=== PATIENT | male | born 1980 | race Caucasian/White ===

== ENCOUNTER 2023-03-11 16:03 | Emergency (ER) | payer MEDICAID, SELFPAY ==
[2023-03-11] VITALS (13 sets, daily range): BP systolic 126–152; BP diastolic 74–100; PULSE 20–68; RESP 16–18; TEMP 36.6–36.7; O2SAT 20–100; BMI 25.0; BMI 25.8
--- NOTE | 2023-03-11 16:09 | PC.NURSE ---
Dr. Duke at [facility] for pt eval
--- NOTE | 2023-03-11 16:11 | CT_ITS ---
PROCEDURE INFORMATION: Exam: CTA Chest With Contrast CTA Abdomen and Pelvis With Contrast Exam date and time: 03/11/2023 5:27 PM Age: 42 years old Clinical indication: Injury or trauma; Fall; Blunt trauma; Other: Entire abdomen; Additional info: Fall from 9 ft, trauma TECHNIQUE: Imaging protocol: Computed tomographic angiography of the chest with contrast. Exam focused on the arteries. Computed tomographic angiography of the abdomen and pelvis with contrast. Exam focused on the arteries. 3D rendering (Not supervised by radiologist): MIP and/or 3D reconstructed images were created by the technologist. Radiation optimization: All CT scans at this facility use at least one of these dose optimization techniques: automated exposure control; mA and/or kV adjustment per patient size (includes targeted exams where dose is matched to clinical indication); or iterative reconstruction. Contrast material: ISOVUE 370; Contrast volume: 100 ml; Contrast route: INTRAVENOUS (IV); REPORTING DATA: Count of CT and Cardiac NM exams in prior 12 months: This patient has received 0 known CTs and 0 known cardiac nuclear medicine studies in the 12 months prior to the current study. COMPARISON: CR XR PELVIS 1-2V 03/11/2023 4:16 PM FINDINGS: VASCULATURE: Pulmonary arteries: No evidence of filling defects to suggest pulmonary emboli. Aorta: Thoracic aorta is nonaneurysmal. Major aortic branches are patent. Aorta is nonaneurysmal. Celiac trunk and mesenteric arteries: No occlusion or significant stenosis. Renal arteries: No occlusion or significant stenosis. Right iliac arteries: No occlusion or significant stenosis. Left iliac arteries: No occlusion or significant stenosis. CHEST: Lungs: No evidence of airspace opacity or interlobular septal thickening. Pleural spaces: No pneumothorax. No pleural effusion. No pneumothorax. No pleural effusion. Heart: No cardiomegaly or pericardial effusion. No cardiomegaly or pericardial effusion. Heart RV/LV ratio: The RV/LV ratio is less than 1. Coronary arteries: No significant coronary artery calcifications. ABDOMEN AND PELVIS: Liver: No focal hepatic lesions. Gallbladder and bile ducts: Cholelithiasis noted without pericholecystic fluid/stranding. Pancreas: No peripancreatic fluid stranding. No main pancreatic ductal dilation. Spleen: No splenomegaly. Adrenal glands: The adrenal glands are normal. Kidneys and ureters: Nephrograms are symmetric. No nephrolithiasis or hydroureteronephrosis on either side. No solid lesions Stomach and bowel: No bowel wall thickening or distention. Appendix: No evidence of appendicitis. Intraperitoneal space: There is no evidence of free intraperitoneal or pelvic fluid. Urinary bladder: Unremarkable. No mass. Reproductive: Unremarkable as visualized. Lymph nodes: Calcified mediastinal and hilar lymph nodes suggest prior granulomatous exposure. No evidence of retroperitoneal or mesenteric lymphadenopathy. Bones/joints: Ribs are intact. Anterolisthesis of L5 over S1 attributed to a chronic bilateral pars defects. No acute osseous abnormality. Soft tissues: Fat containing right inguinal hernia noted IMPRESSION: 1. No acute traumatic injury in the chest abdomen or pelvis. 2. Anterolisthesis of L5 over S1 attributed to a chronic bilateral pars defects. No acute osseous abnormality
--- NOTE | 2023-03-11 16:11 | XR_ITS ---
PROCEDURE INFORMATION: Exam: XR Left Tibia and Fibula Exam date and time: 03/11/2023 4:16 PM Age: 42 years old Clinical indication: Injury or trauma; Fall; Blunt trauma; Lower leg; Left; Additional info: Fall from 9 ft, trauma TECHNIQUE: Imaging protocol: Radiologic exam of the left tibia and fibula. Views: 2 views. COMPARISON: No relevant prior studies available. FINDINGS: Bones/joints: Comminuted intra-articular fracture of the proximal tibia. Comminuted and impacted fracture of the proximal fibula . Soft tissues: Normal. IMPRESSION: Comminuted intra-articular fracture of the proximal tibia. Comminuted and impacted fracture of the proximal fibula .
--- NOTE | 2023-03-11 16:11 | XR_ITS ---
PROCEDURE INFORMATION: Exam: XR Left Knee Exam date and time: 03/11/2023 4:16 PM Age: 42 years old Clinical indication: Injury or trauma; Fall; Blunt trauma; Knee; Left; Additional info: Fall from 9 ft, trauma TECHNIQUE: Imaging protocol: Radiologic exam of the left knee. Views: 3 views. COMPARISON: No relevant prior studies available. FINDINGS: Bones/joints: There is a complex fracture of the knee with a comminuted tibial component with extension to the articular surface. There is a comminuted and impacted proximal fibular fracture. There is a large joint effusion. Soft tissues: Normal. IMPRESSION: Complex fracture of the proximal tibia with intra-articular extension. Complex comminuted and impacted proximal fibular fracture.
--- NOTE | 2023-03-11 16:11 | CT_ITS ---
PROCEDURE INFORMATION: Exam: CT Thoracic Spine Without Contrast Exam date and time: 03/11/2023 5:16 PM Age: 42 years old Clinical indication: Injury or trauma; Fall; Blunt trauma (contusions or hematomas); Additional info: Fall from 9 ft, trauma TECHNIQUE: Imaging protocol: Computed tomography of the thoracic spine without contrast. Radiation optimization: All CT scans at this facility use at least one of these dose optimization techniques: automated exposure control; mA and/or kV adjustment per patient size (includes targeted exams where dose is matched to clinical indication); or iterative reconstruction. REPORTING DATA: Count of CT and Cardiac NM exams in prior 12 months: This patient has received 0 known CTs and 0 known cardiac nuclear medicine studies in the 12 months prior to the current study. COMPARISON: CT CERVICAL SPINE WO CON 03/11/2023 5:14 PM FINDINGS: Bones/joints: Prominent Schmorl's noted at T12 vertebra noted.Otherwise, there is preservation of vertebral alignment and vertebral body heights. Facet joints are aligned. No acute fracture. There is no significant osseous encroachment of the spinal canal or neural foraminal narrowing at any level. Soft tissues: Unremarkable. IMPRESSION: No acute fracture. No traumatic subluxation.
--- NOTE | 2023-03-11 16:11 | CT_ITS ---
PROCEDURE INFORMATION: Exam: CT Cervical Spine Without Contrast Exam date and time: 03/11/2023 5:14 PM Age: 42 years old Clinical indication: Injury or trauma; Fall; Blunt trauma; Additional info: Fall from 9 ft, trauma TECHNIQUE: Imaging protocol: Computed tomography of the cervical spine without contrast. Radiation optimization: All CT scans at this facility use at least one of these dose optimization techniques: automated exposure control; mA and/or kV adjustment per patient size (includes targeted exams where dose is matched to clinical indication); or iterative reconstruction. REPORTING DATA: Count of CT and Cardiac NM exams in prior 12 months: This patient has received 0 known CTs and 0 known cardiac nuclear medicine studies in the 12 months prior to the current study. COMPARISON: CT HEAD/BRAIN WO CON 03/11/2023 5:11 PM FINDINGS: Bones/joints: There is straightening of the normal spinal curvature. There is multilevel degenerative change with loss of intervertebral disc space and anterior osteophyte formation. No acute fracture or dislocation is identified. Lungs: Partially visualized calcified granulomas in the lungs. Soft tissues: Unremarkable. Other findings: There is a noncalcified 6 mm left apical triangular nodule (image 85 series 3). For patients at low risk (minimal or absent history of smoking and of other known risk factors), recommend CT Chest at 3-6 months, then consider CT Chest at 18-24 months. For patients at high risk (history of smoking or of other known risk factors), recommend CT Chest at 3-6 months, then CT Chest at 18-24 months. (Reference: Yolanda). IMPRESSION: 1. Degenerative disease without acute injury identified. 2. There is a noncalcified 6 mm left apical triangular nodule (image 85 series 3). For patients at low risk (minimal or absent history of smoking and of other known risk factors), recommend CT Chest at 3-6 months, then consider CT Chest at 18-24 months. For patients at high risk (history of smoking or of other known risk factors), recommend CT Chest at 3-6 months, then CT Chest at 18-24 months. (Reference: Yolanda). REFERENCES: Yolanda Sterling et al. Guidelines for Management of Incidental Pulmonary Nodules Detected on CT Images: From the Fleischner Society 2017. Radiology. 2017;284(1):228-243.
--- NOTE | 2023-03-11 16:11 | XR_ITS ---
PROCEDURE INFORMATION: Exam: XR Left Femur Exam date and time: 03/11/2023 4:16 PM Age: 42 years old Clinical indication: Injury or trauma; Fall; Blunt trauma; Thigh or upper leg; Left; Additional info: Deformity L knee/tib fib TECHNIQUE: Imaging protocol: Radiologic exam of the left femur. Views: 2 views. COMPARISON: No relevant prior studies available. FINDINGS: Bones/joints: Partial visualization of proximal tibial and fibular fractures. No additional fracture seen. Soft tissues: Unremarkable. IMPRESSION: Partial visualization of proximal tibial and fibular fractures. No additional fracture seen.
--- NOTE | 2023-03-11 16:11 | XR_ITS ---
PROCEDURE INFORMATION: Exam: XR Chest Exam date and time: 03/11/2023 4:16 PM Age: 42 years old Clinical indication: Injury or trauma; Fall; Blunt trauma (contusions or hematomas); Additional info: Fall from 9 ft, trauma TECHNIQUE: Imaging protocol: Radiologic exam of the chest. Views: 1 view. COMPARISON: No relevant prior studies available. FINDINGS: Lungs: Unremarkable. No consolidation. Pleural spaces: Unremarkable. No pleural effusion. No pneumothorax. Heart/Mediastinum: Unremarkable. No cardiomegaly. Bones/joints: Unremarkable. IMPRESSION: No acute findings.
--- NOTE | 2023-03-11 16:11 | XR_ITS ---
PROCEDURE INFORMATION: Exam: XR Pelvis Exam date and time: 03/11/2023 4:16 PM Age: 42 years old Clinical indication: Injury or trauma; Fall; Blunt trauma (contusions or hematomas); Bilateral; Pelvic region; Additional info: Fall from 9 ft, trauma TECHNIQUE: Imaging protocol: Radiologic exam of the pelvis. Views: 1 or 2 view. COMPARISON: No relevant prior studies available. FINDINGS: Bones/joints: Unremarkable. No acute fracture. Soft tissues: Unremarkable. IMPRESSION: No acute findings.
--- NOTE | 2023-03-11 16:11 | CT_ITS ---
PROCEDURE INFORMATION: Exam: CT Lumbar Spine Without Contrast Exam date and time: 03/11/2023 5:19 PM Age: 42 years old Clinical indication: Injury or trauma; Fall; Work related; Blunt trauma (contusions or hematomas); Additional info: Fall from 9 ft, trauma TECHNIQUE: Imaging protocol: Computed tomography of the lumbar spine without contrast. Radiation optimization: All CT scans at this facility use at least one of these dose optimization techniques: automated exposure control; mA and/or kV adjustment per patient size (includes targeted exams where dose is matched to clinical indication); or iterative reconstruction. REPORTING DATA: Count of CT and Cardiac NM exams in prior 12 months: This patient has received 0 known CTs and 0 known cardiac nuclear medicine studies in the 12 months prior to the current study. COMPARISON: CT THORACIC SPINE WO CON 03/11/2023 5:16 PM FINDINGS: Bones/joints: Anterolisthesis of L5 over S1 attributed to a chronic bilateral pars defects. Prominent superior endplate Schmorl's node at T12 vertebra.There is preservation of vertebral alignment and vertebral body heights. Facet joints are aligned. No acute fracture. No significant central spinal canal stenosis or neural foraminal narrowing at any level. Sacroiliac joints are intact. Soft tissues: Unremarkable. IMPRESSION: Anterolisthesis of L5 over S1 attributed to a chronic bilateral pars defects. Otherwise no acute fracture or traumatic subluxation
--- NOTE | 2023-03-11 16:11 | CT_ITS ---
PROCEDURE INFORMATION: Exam: CT Head Without Contrast Exam date and time: 03/11/2023 5:11 PM Age: 42 years old Clinical indication: Injury or trauma; Fall; Blunt trauma (contusions or hematomas); Additional info: Fall from 9 ft, trauma TECHNIQUE: Imaging protocol: Computed tomography of the head without contrast. Radiation optimization: All CT scans at this facility use at least one of these dose optimization techniques: automated exposure control; mA and/or kV adjustment per patient size (includes targeted exams where dose is matched to clinical indication); or iterative reconstruction. REPORTING DATA: Count of CT and Cardiac NM exams in prior 12 months: This patient has received 0 known CTs and 0 known cardiac nuclear medicine studies in the 12 months prior to the current study. COMPARISON: No relevant prior studies available. FINDINGS: Brain: There are calcifications of the pineal gland. No evidence for acute intracranial hemorrhage, midline shift, or mass effect. No convincing evidence for acute transcortical infarct. Cerebral ventricles: There are calcifications of the choroid plexus. Paranasal sinuses: Visualized sinuses are unremarkable. No fluid levels. Mastoid air cells: Visualized mastoid air cells are well aerated. Bones/joints: Unremarkable. No acute fracture. Soft tissues: Unremarkable. IMPRESSION: No evidence for acute intracranial hemorrhage, midline shift, or mass effect. No convincing evidence for acute transcortical infarct.
--- NOTE | 2023-03-11 16:11 | CT_ITS ---
PROCEDURE INFORMATION: Exam: CTA Chest With Contrast Exam date and time: 03/11/2023 5:27 PM Age: 42 years old Clinical indication: Injury or trauma; Fall; Blunt trauma (contusions or hematomas); Additional info: Fall from 9 ft, trauma TECHNIQUE: Imaging protocol: Computed tomographic angiography of the chest with contrast. Exam focused on the arteries. 3D rendering (Not supervised by radiologist): MIP and/or 3D reconstructed images were created by the technologist. Radiation optimization: All CT scans at this facility use at least one of these dose optimization techniques: automated exposure control; mA and/or kV adjustment per patient size (includes targeted exams where dose is matched to clinical indication); or iterative reconstruction. Contrast material: ISOVUE 370; Contrast volume: 100 ml; Contrast route: INTRAVENOUS (IV); REPORTING DATA: Count of CT and Cardiac NM exams in prior 12 months: This patient has received 0 known CTs and 0 known cardiac nuclear medicine studies in the 12 months prior to the current study. COMPARISON: CR XR CHEST PORTABLE 03/11/2023 4:16 PM FINDINGS: Pulmonary arteries: Normal. No pulmonary emboli. Aorta: Unremarkable. No aortic aneurysm. No aortic dissection. Lungs: No evidence of airspace opacity or interlobular septal thickening. Pleural spaces: No pneumothorax. No pleural effusion. No pneumothorax. No pleural effusion. Heart: No cardiomegaly or pericardial effusion. No cardiomegaly or pericardial effusion. Heart RV/LV ratio: The RV/LV ratio is less than 1. Coronary arteries: No significant coronary artery calcifications. Lymph nodes: Calcified mediastinal and hilar lymph nodes suggest prior granulomatous exposure. Bones/joints: Unremarkable. No acute fracture. Soft tissues: Unremarkable. IMPRESSION: No acute traumatic injury in the chest.
--- NOTE | 2023-03-11 16:22 | [facility].EDGENADL ---
Discharge Plan Disposition Patient Disposition: Xfer Short-Term Hosp Condition: Good Referrals Follow up/Referrals: Provider,Referral, MD [Primary Care Provider] - See instructions Clinical Impressions Clinical Impression: Closed fracture of left tibial plateau, Closed left fibular fracture, Fall from ladder Discharge ED Provider: Allison Duke General Adult HPI General Chief complaint: Fall Stated complaint: Fall Time Seen by Provider: 03/11/23 16:06 History of Present Illness HPI narrative: This patient is a 42-year-old male who denies significant past medical history presenting to the emergency department for evaluation after a fall from 9 feet high. He was on a ladder painting a barn when he fell, landing onto his left leg. He felt immediate pain in his left lower leg and has been unable to bear weight since. He denies any head injury or loss of consciousness. He was well prior to this. He denies any head pain, neck pain, back pain, chest pain, abdominal pain, or other concerns. He was well prior to the fall. He denies any use of anticoagulation. He was well prior to the fall. Related Data Allergies Allergy/AdvReac Type Severity Reaction Status Date / Time No Known Allergies Allergy Verified 03/11/23 16:21 [facility] Disclaimer: The information contained in this section may have been updated after the patient was seen, as this information can be updated by other users. Social History Smoking Status: Current every day smoker alcohol intake: never current occupational status: employed Travel in the last 8 weeks: None ROS Obtained: Yes All systems reviewed & no additional complaints except as documented Physical Exam General General appearance: alert Comment: Uncomfortable appearing, in distress secondary to pain Head Head exam: atraumatic and normocephalic Eye Eye exam: Present normal appearance, PERRL and EOMI ENT ENT exam: Present normal exam, normal oropharynx, mucous membranes moist and normal external ear exam Neck Neck exam: Present normal inspection, full ROM and trachea midline; Absent tenderness Chest Chest inspection: Present normal inspection and symmetric chest wall rise; Absent tenderness Respiratory Respiratory exam: Present normal lung sounds bilaterally; Absent respiratory distress, wheezes, stridor or accessory muscle use Cardiovascular Cardiovascular exam: Present regular rate and normal rhythm Abdominal Exam Abdominal exam: Present soft; Absent distention, tenderness or guarding Extremities Exam Extremities exam: Present tenderness, normal capillary refill and edema Expanded Lower Extremity Exam Left: Knee exam: Present tenderness and swelling; Absent abrasion or laceration Lower leg exam: Present tenderness, swelling, deformity and other (Obvious deformity to the knee/proximal lower leg. No open wounds overlying this region. All compartments soft. Neurovascularly intact distally. No other injuries noted); Absent abrasion or laceration Back Exam Back exam: Present normal inspection and full ROM; Absent tenderness Neurological Exam Neurological exam: Present alert, oriented X3, CN II-XII intact and normal gait; Absent motor sensory deficit Psychiatric Psychiatric exam: Present normal affect and normal mood Skin Skin exam: Present warm and dry Medical Decision Making Medical Records Medical records reviewed: Yes I reviewed the patient's medical records. Ifeanyi Inquiry Pt receiving controlled substance: No Vital Signs: 03/11/23 16:26 03/11/23 16:23 03/11/23 16:30 Temperature 98.0 F Temperature Source Oral Pulse Rate 55 L 53 L Pulse Rate [Left] 60 Respiratory Rate 16 Blood Pressure 137/95 H 138/99 H Blood Pressure [Right Arm] 149/95 H Blood Pressure Mean 103 111 Blood Pressure Mean [Right Arm] 113 02 Sat by Pulse Oximetry 99 97 98 Oxygen Delivery Method Room Air Room Air
--- NOTE | 2023-03-11 16:43 | CT_ITS ---
PROCEDURE INFORMATION: Exam: CT Left Lower Extremity Without Contrast, Knee Exam date and time: 03/11/2023 5:23 PM Age: 42 years old Clinical indication: Injury or trauma; Fall; Blunt trauma; Knee; Left; Additional info: Fall, comminuted fracture TECHNIQUE: Imaging protocol: CT of the left lower extremity without contrast was performed. Exam focused on the knee. Radiation optimization: All CT scans at this facility use at least one of these dose optimization techniques: automated exposure control; mA and/or kV adjustment per patient size (includes targeted exams where dose is matched to clinical indication); or iterative reconstruction. REPORTING DATA: Count of CT and Cardiac NM exams in prior 12 months: This patient has received 0 known CTs and 0 known cardiac nuclear medicine studies in the 12 months prior to the current study. COMPARISON: CR XR KNEE LT 3V 03/11/2023 4:16 PM FINDINGS: Bones/joints: There is redemonstration of acute, highly comminuted fracture of the proximal tibial metaphysis and split fracture of mediolateral tibial plateaux. The lateral tibial plateau is depressed by 5 mm. Acute comminuted fracture of the fibular head and neck is re-identified. Large lipohemarthrosis. Soft tissues: Normal. IMPRESSION: 1. Acute Schatzker 6 tibial plateau fracture 2. Acute comminuted fracture of the fibular head and neck.
--- NOTE | 2023-03-11 17:01 | PC.NURSE ---
notified radiology to prepare a disc of images and powershare to [facility] when they are complete
[2023-03-11 17:03] LABS: Basophils # 0.1 K/mm3 (0-0.2); Basophils % 0.8 % (0.1-2.0); Eosinophils # 0.3 K/mm3 (0.0-0.4); Eosinophils % 3.4 % (0.1-12.0); Hematocrit 47.7 % (42.0-52.0); Hemoglobin 15.2 g/dL (14.1-18.0); Lymphocytes # 1.9 K/mm3 (0.7-4.5); Lymphocytes % 21.5 % (10-50); Mean Corpuscular HGB Conc 31.8 g/dL (31.8-35.4); Mean Corpuscular Hemoglobin 30.5 pg (27.0-31.2); Mean Platelet Volume 8.2 fl (7.4-10.4); Monocytes # 0.4 K/mm3 (0.1-1.0); Monocytes % 4.4 % (1.7-9.3); Neutrophils # 6.2 K/mm3 (1.8-7.8); Neutrophils % 69.9 % (37.0-80.0); Platelet Count 241 K/mm3 (142-424); Red Blood Count 4.97 M/mm3 (4.60-6.20); Red Cell Distribution Width 13.4 % (11.5-17.5); White Blood Count 8.8 K/mm3 (4.8-10.8)
[2023-03-11 17:15] LABS: INR 1.08 (0.9-1.1); Prothrombin Time 11.6 seconds (10.1-12.5)
--- NOTE | 2023-03-11 17:36 | PC.NURSE ---
pt return from CT via stretcher pt LLE repositioned for comfort, propped up on pillows. lights turned out in pt room for comfort family at [facility], call button in reach
--- NOTE | 2023-03-11 18:12 | PC.NURSE ---
Contacted [facility] for possible transfer, will call back with further.
[2023-03-11 18:20] LABS: Alanine Aminotransferase 244 U/L (12-78); Alkaline Phosphatase 112 U/L (38-126); Anion Gap 12.8 mEq/L (5-15); Aspartate Amino Transferase 155 U/L (17-59); Bilirubin,Total 0.6 mg/dl (0.2-1.3); Blood Urea Nitrogen 19 mg/dl (9-20); Calcium 8.6 mg/dl (8.4-10.2); Carbon Dioxide 30 mmol/L (22.0-30.0); Chloride 99 mmol/L (98-107); Creatinine Clearance Estimated 84 mL/min (50-200); Estimated Glomerular Filt Rate 66 ml/min (>60); GFR (African American) 80 ML/MIN (>60); Globulin 3.9 g/dL (1.3-3.2); Glucose 191 mg/dl (74-100); Potassium 3.8 mmoL/L (3.5-5.1); Sodium 138 mmol/L (136-145); Total Protein,Serum 7.9 g/dl (6.3-8.2)
--- NOTE | 2023-03-11 18:49 | PC.NURSE ---
contacted a second time for status on transfer.
--- NOTE | 2023-03-11 19:34 | PC.NURSE ---
called [facility] for transfer Dr Duke spoke with ortho and pt is accepted
== END 2023-03-11 22:21 | disposition short-term general hospital (02) ==
PROVIDERS: Emergency Provider Emergency Medicine
DX: S82.102A Unspecified fracture of upper end of left tibia, initial encounter for closed fracture (principal); S82.832A Other fracture of upper and lower end of left fibula, initial encounter for closed fracture; W11.XXXA Fall on and from ladder, initial encounter; F17.200 Nicotine dependence, unspecified, uncomplicated
CPT/HCPCS: 70450; 71045; 71275; 72125; 72128; 72131; 72170; 73552; 73562; 73590; 73700; 74174; 80053; 85025; 85610; 86850; 96361; 96374; 96375; 96376; 99285; J2405; Q9967

== ENCOUNTER 2025-03-24 12:34 | Emergency (ER) | payer MEDICAID, SELFPAY ==
[2025-03-24 12:43] VITALS: BP 120/81; PULSE 72; RESP 19; TEMP 36.6; O2SAT 95; BMI 23.5
--- OUTSIDE RECORDS SUMMARY | 2025-03-24 12:55 | XMS_ITS | Clinical Summary ---
Author Organization [facility] Address [address] [place] [id number] Care Team Providers Care Pizza Driver Name Role Phone Pcp, No Primary Care Provider [phone] Source Comments This information has been disclosed to you from confidential records protectedfrom disclosure by state law. You shall make no further disclosure of thisinformation without the specific, written, and informed release of theindividual to whom it pertains, or as otherwise permitted by law. A generalauthorization for the release of medical or other information is not sufficientfor the purposes of therelease of HIV test results or diagnoses. [id number] Allergies No known active allergies Medications naloxone (NARCAN) 4 mg/actuation [place] Apply 1 spray in one nostril if needed. Call 911. May repeat dose in other nostril if no response in 3 minutes. 2 each 1 03/17/2023 5:47 PM EDT 03/17/2023 Active acetaminophen (TYLENOL) 325 MG tablet Take 3 tablets (975 mg total) by mouth every 8 hours. 100 tablet 04/03/2023 2:28 PM EDT 04/03/2023 Active gabapentin (NEURONTIN) 300 MG capsule Take 1 capsule (300 mg total) by mouth 3 times a day. 90 capsule 04/03/2023 Active methocarbamoL (ROBAXIN) 750 MG tablet Take 1 tablet (750 mg total) by mouth 3 times a day. 30 tablet 04/03/2023 2:28 PM EDT 04/03/2023 Active sulfamethoxazol e-trimethoprim (BACTRIM DS) 800-160 mg per tabletIndicatio ns:Closed fracture of left tibial plateau with routine healing, subsequent encounter Take 1 tablet by mouth 2 times a day. 14 tablet 04/14/2023 1:59 PM EDT 04/14/2023 Active Active Problems Problem Noted Date Diagnosed Date Closed bicondylar fracture of left tibial platea u 08/07/2023 Social History Tobacco Use Types Packs/Day Years Used Date Smoking Tobacco: Every Day Cigarettes 1 9.7 Started: 2015 Tobacco Cessation:Ready to Q uit: Not Asked; Counseling Given: Not Answered Alcohol Use Standard Drinks/Week Comments Never 0 (1 standard drink = 0.6 oz pur e alcohol) AUDIT-C Answer Date Recorded Q1: How often do you have a drink containing alcohol? Never 04/02/2023 Q2: How many drinks containi ng alcohol do you have on a typical day when you are drinking? Patient does not drink Q3: How often do you have si x or more drinks on one occasion? Never 04/02/2023 Sex and Gender Information Value Date Recorded Sex Assigned at Not on file Legal Sex Male 5:51 PM EST Gender Identity Not on file Sexual Orientation Not on file Last Filed Vital Signs Vital Sign Reading Time Taken Comments Blood Pressure 113/69 04/03/2023 12:44 PM EDT Pulse 97 04/03/2023 12:44 PM EDT Temperature 37.1 C (98.7 F) 04/03/2023 12:44 PM EDT Respiratory Rate 16 04/03/2023 12:44 PM EDT Oxygen Saturation 96% 04/03/2023 12:44 PM EDT Inhaled Oxygen Concentration 96% 04/03/2023 1 2:44 PM EDT Weight 68 kg (150 lb) 08/07/2023 9:25 AM EST Height 170.2 cm (5' 7 ) 08/07/2023 9:25 AM EST Body Mass Index 23.49 08/07/2023 9:25 AM EST Plan of Treatment Health Maintenance Due Date Last Done Comments Abnormal Colonoscopy Follow Up 1979 Hepatitis C Screening (MyChart) 1979 Depression Screening 1997 HIV Screening 1997 Immunization: DTaP/Tdap/Td (1 - Tdap) 1998 Immunization: Hepatitis B (1 of 3 - 19+ 3-dose series) 1998 Immunization: Pneumococcal (1 of 2 - PCV) 1998 Alcohol Misuse Screening 03/24/2024 03/24/2023, 02/27 Cologuard (FIT-DNA) 2024 Colonoscopy 2024 Colorectal Cancer Screening (MyChart) 2024 Stool Testing (gFOBT) 2024 Immunization: COVID-19 ( - season) 2025 01/25/2021 Immunization: Influenza (MyChart) (#1) 2025 Medical Devices Implanted Type Area Vocational Nurse Device Identifier Shelf Expiration Date Model / Serial / Lot Sampson External Fixation Deshawn 3 Vectran Carbon L350 Mm Od11 Mm Modular Connect Mri Safe - [id number] Implanted:Qty : 2 on 03/12/2023 by Fer Castro MD at [facility] Main External Fixation Left: Tibia KELSI Self-A-r-TCA 4922-8-350 / / Sampson Xtrnfx 600mm 11mm Hfmn 3 C - [id number] Implanted:Qty : 1 on 03/12/2023 by Fer Castro MD at [facility] Main External Fixation Left: Tibia KELSI Self-A-r-TCA 4922-8-600 / / Coupling Xtrnfx Hfmn Iii Sampson To Sampson Fabricio 5 Mm Apx Pin - [id number] Implanted:Qty : 7 on 03/12/2023 by Fer Castro MD at [facility] Main Orthopedic Left: Tibia KELSI Self-A-r-TCA 4922-1-010 RP / / Pin Half Deshawn 3 [place] L150 Mm L50 Mm Od5 Mm Upper Right Self Drill - [id number] Implanted:Qty : 2 on 03/12/2023 by Fer Castro MD at [facility] Main Pin Left: Tibia KELSI Self-A-r-TCA 5018-6-150 / / Pin Half [place] Deshawn Ii Stainless Steel L180 Mm L50 Mm Od5 Mm Cancellous Self Tap Self Drill Thread Nonsterile External Fixation System - [id number] Implanted:Qty : 2 on 03/12/2023 by Fer Castro MD at [facility] Main Pin Left: Tibia KELSI HOWMEDICA 5018-6-180 / / Wire Fixation Stuart Stainless Steel L150 Mm Od1.6 Mm [place] Sterile - [id number] Implanted:Qty : 3 on 04/02/2023 by Fer Castro MD at [facility] Main Pin Left: Tibia BLOUNT & NEPHEW CARUSO [id number] / / Wire Fixation Stuart Stainless Steel L150 Mm Od2 Mm [place] Sterile - [id number] Implanted:Qty : 1 on 04/02/2023 by Fer Castro MD at [facility] Main Pin Left: Tibia BLOUNT & NEPHEW CARUSO [id number] / / Pin Fx 40mm 2.5mm Evos Prv Strl - [id number] Implanted:Qty : 1 on 04/02/2023 by Fer Castro MD at [facility] Main Pin Left: Tibia BLOUNT & NEPHEW CARUSO [id number] / / Plate Bone Evos L201 Mm Tibia Left Proximal Medial 16 Hole Sterile 3.5 Mm Screw - [id number] Implanted:Qty : 1 on 04/02/2023 by Fer Castro MD at [facility] Main Plate Left: Tibia BLOUNT [employer] NEPHEW CARUSO [id number] / / Screw Bone Asnis Iii Titanium L85 Mm Od6.5 Mm Fully Threaded Cannulated Self Tapping Drilling Sterile - [id number] Implanted:Qty : 1 on 03/12/2023 by Fer Castro MD at [facility] Main Screw Left: Tibia KELSI HOWMEDICA [id number] / / Screw Bone Evos L24 Mm Od3.5 Mm Cortex Self Tap Sterile - [id number] Implanted:Qty : 1 on 04/02/2023 by Fer Castro MD at [facility] Main Screw Left: Tibia [employer]OUNT [employer]PHE[employer] CARUSO [id number] / / Screw Bone Evos L22 Mm Od3.5 Mm Cortex Self Tap Sterile - [id number] Implanted:Qty : 2 on 04/02/2023 by Fer Castro MD at [facility] Main Screw Left: Tibia [employer]OUNT [employer]PHE[employer] CARUSO [id number] / / Screw Bone Evos L26 Mm Od3.5 Mm Self Tap Lock Sterile - [id number] Implanted:Qty : 1 on 04/02/2023 by Fer Castro MD at [facility] Main Screw Left: Tibia [employer]OUNT [employer]PHE[employer] CARUSO [id number] / / Screw Bone Evos L55 Mm Od3.5 Mm Self Tap Lock Sterile - [id number] Implanted:Qty : 1 on 04/02/2023 by Fer Castro MD at [facility] Main Screw Left: Tibia BLOUNT [employer]PHEW CARUSO [id number] / / Screw Bone Evos L60 Mm Od3.5 Mm Self Tap Lock Sterile - [id number] Implanted:Qty : 1 on 04/02/2023 by Fer Castro MD at [facility] Main Screw Left: Tibia BLOUNT [employer]PHEW CARUSO [id number] / / Screw Bone Evos L70 Mm Od3.5 Mm Self Tap Lock Sterile - [id number] Implanted:Qty : 1 on 04/02/2023 by Fer Castro MD at [facility] Main Screw Left: Tibia BLOUNT [employer] NEPHEW CARUSO [id number] / / Screw Bone Evos L75 Mm Od3.5 Mm Self Tap Lock Sterile - [id number] Implanted:Qty : 2 on 04/02/2023 by Fer Castro MD at [facility] Main Screw Left: Tibia BLOUNT & NEPHEW CARUSO [id number] / / Insurance [facility] MEDICAID [facility] care Address: [place] [address] Advance Directives For more information, please contact: [phone] * Full Code (Latest Code Status on File) Date Activated Date Inactivated Comments 04/02/2023 3:43 PM 04/04/2023 2:52 AM * Full Code Date Activated Date Inactivated Comments 03/12/2023 7:30 AM 03/18/2023 12:41 AM Care Teams Pizza Driver Relationship Specialty Start Date End Date Pcp, No No Address PCP - General 03/11/23
--- NOTE | 2025-03-24 12:59 | XR_ITS ---
FINAL REPORT CLINICAL HISTORY: fell from 8-10 ft landed on R foot, twisted FINDINGS: AP, oblique and lateral views of the right foot were obtained. There is hallux valgus deformity and degenerative disease of the first metatarsal phalangeal joint. There may be a nondisplaced fracture at the lateral base of the second metatarsal. Prominent soft tissue edema is noted along the dorsal midfoot and forefoot. IMPRESSION: Possible nondisplaced fracture at the base of the second metatarsal. Consider CT to further evaluate. Reviewed, Interpreted and Dictated by Karen Lanza MD Transcribed by Rhea Morgan Authenticated and [facility]
--- NOTE | 2025-03-24 12:59 | XR_ITS ---
FINAL REPORT CLINICAL HISTORY: fell from 8-10 ft FINDINGS: AP, oblique, and lateral views of the right ankle were obtained. There is no fracture or dislocation. The ankle mortise is intact. Soft tissues are unremarkable. IMPRESSION: No acute osseous abnormality of the right ankle. Reviewed, Interpreted and Dictated by Karen Lanza MD Transcribed by Rhea Morgan Authenticated and [facility]
[2025-03-24 13:00] VITALS: O2SAT 95
[2025-03-24] MEDS: ACETAMINOPHEN 500MG TAB 1000 MG PO (13:12)
--- NOTE | 2025-03-24 13:30 | ED_ITS ---
<Statement entered by Jorge L Lerner DO - 03/25/25 17:49> I was consulted by the MELODIE, and we discussed the complexity of problems being addressed. I approved the treatment and management plan for this patient's care in the emergency department, thus performing a substantive portion of the medical decision making. Jorge L Lerner DO Discharge Plan Disposition Patient Disposition: Home, Self-Care Condition: Fair Referrals Follow up/Referrals: Garland Kohli DO [Staff Physician, Orthopedics] - See instructions Provider,Referral, [Primary Care Provider, Medical] - See instructions Activity Restrictions/Add. Instructions Additional Instructions/Restrictions: Today you were evaluated in the emergency department and diagnosed with a non- displaced fracture of your second metatarsal. Please wear the walking boot as directed, please follow-up with Dr. Kohli. Please use crutches as able. Please return to the ED for worsening of condition. Manage her pain with acetaminophen or ibuprofen. Return to the ED for worsening of condition. Clinical Impressions Clinical Impression: Closed fracture of second metatarsal bone Qualifiers: Encounter type: initial encounter Instructions Patient Instructions: How to Prevent Falls Print Language Print Language: Georgian Discharge ED Provider: Jorge L Lerner General Adult HPI General Chief complaint: Fall Stated complaint: [id number]- Pain and swelling R foot Time Seen by Provider: 03/24/25 12:49 Mode of Arrival: Ambulatory Source of Information: Patient Description of Symptoms (Recalled from ER Triage Doc. by RN): pt presents to ED with c/o right foot pain. pt reports that he had a fall from scaffolding 8-10 feet. pt reports pain only in right foot. foot got caught in between boards. History of Present Illness HPI narrative: patient is a 44-year-old male with no significant PMHx who presents to the ED for right foot and ankle pain. Patient states that he fell from scaffolding, approximately 8 feet, landed on his right foot which went in between some wood, and then he fell to the side. Patient states he did not hit his head, did not lose consciousness, is not on blood thinners. Patient has been ambulatory since the event. He denies any low back pain, denies pain around the calcaneus. He denies any other injuries. Related Data Allergies Allergy/AdvReac Type Severity Reaction Status Date / Time No Known Allergies Allergy Verified 03/11/23 16:21 [facility] Disclaimer: The information contained in this section may have been updated after the patient was seen, as this information can be updated by other users. Social History (Updated 03/11/23 @ 19:35 by Allison Duke DO) Smoking Status: Current every day smoker alcohol intake: never current occupational status: employed Travel in the last 8 weeks?: None Have you lived/traveled outside US in past 30 days?: No Contact w/someone who lives/traveled outside US past 30 days?: No Exposure to someone with infectious disease in past 14 days?: No Do you have a fever (greater than 100.4 F or 38 C)?: No Have you tested positive for COVID-19?: No Exposed to someone with COVID-19 in past 14 days?: No Do you have a sore throat?: No Do you have a cough?: No Do you have any weakness?: No Do you have any diarrhea?: No Are you experiencing any unusual bleeding?: No Do you have any muscle aches/pain?: No Do you have any abdominal pain?: No Are you experiencing loss of taste or smell?: No ROS Obtained: Yes Systems reviewed as appropriate & no additional complaints except as documented Physical Exam General General appearance: alert and in no apparent distress Head Head exam: atraumatic Eye Eye exam: Present PERRL and EOMI Neck Neck exam: Present full ROM Respiratory Respiratory exam: Present normal lung sounds bilaterally Cardiovascular Cardiovascular exam: Present regular rate Abdominal Exam Abdominal exam: Present soft Extremities Exam Extremities exam: Present other (Right foot swelling, tenderness on the anterior aspect, pulses present) Back Exam Back exam: Present full ROM Neurological Exam Neurological exam: Present alert and oriented X3 Skin Skin exam: Present warm and dry Medical Decision Making Medical Records Screening: Per USPSTF and CDC recommendations, given the prevalence of disease in our region, it is our hospital?s policy to screen for HIV and viral Hepatitis for all patients aged 18 and over and those with ongoing risk factors. Ifeanyi Inquiry Pt receiving controlled substance: No Ifeanyi was queried for this patient: No Vital Signs: 03/24/25 12:43 03/24/25 13:00 03/24/25 14:46 Temperature 97.9 F 98.0 F Temperature Source Oral Pulse Rate 60 Pulse Rate [Left Radial] 72 Respiratory Rate 19 16 Blood Pressure 100/68 L Blood Pressure [Right Arm] 120/81 Blood Pressure Mean [Right Arm] 94 02 Sat by Pulse Oximetry 95 95 Oxygen Delivery Method Room Air Room Air Orders (Tests/Meds): ED MEDICATIONS Discontinued Medications Generic Name Dose Route Start Last Admin Trade Name Khoi PRN Reason Stop Dose Admin Acetaminophen 1,000 mg 03/24/25 12:59 03/24/25 13:12 Acetaminophen 500mg Tab PO 03/24/25 13:00 1,000 mg ONCE ONE Administration ORDERS Category Date Time Status Ankle XR -Right minimum 3 Views [XR ankle RT min 3V] Exams 03/24/25 12:59 Completed Stat Foot XR right minimum 3 views [XR foot RT min 3V] Stat Exams 03/24/25 12:59 Completed Medical Decision Narrative: In summary, patient is a 44-year-old male with no significant PMHx who presents to the ED for right foot and ankle pain. Patient states that he fell from scaffolding, approximately 8 feet, landed on his right foot which went in between some wood, and then he fell to the side. Patient states he did not hit his head, did not lose consciousness, is not on blood thinners. Patient has been ambulatory since the event. He denies any low back pain, denies pain around the calcaneus. He denies any other injuries. Upon physical exam, patient is alert, oriented and cooperative. No step-offs or deformities of spine, no spinal tenderness. No nystagmus. Neuroexam intact. He has swelling of his right dorsal aspect of the foot, pulses intact, no posterior ankle tenderness. Differential diagnoses include metatarsal fracture, sprain, displacement, peritoneal tendon injury, among others. Discussed with patient we will proceed with imaging. He is agreeable at this time. Patient symptomatically managed with acetaminophen Formal reads of the x-rays remarkable for a nondisplaced fracture at the base of the second metatarsal. Discussed with patient diagnosis. We discussed that we will place him in a walking boot with crutches, advised him that he will need to follow-up with Dr. Kohli. Patient verbalized understanding of instructions. We discussed how to use a walking boot and the crutches, advised him that if he cannot use crutches to at least wear the walking boot until cleared. Patient was hemodynamically stable and ambulatory from the ED without difficulty Critical Care Critical Care Time Critical Care Time: No
[2025-03-24 14:46] VITALS: BP 100/68; PULSE 60; RESP 16; TEMP 36.7; O2SAT 95
== END 2025-03-24 14:47 | disposition home or self-care (01) ==
PROVIDERS: Emergency Provider Student in an Organized Health Care Education/Training Program
DX: S92.321A Displaced fracture of second metatarsal bone, right foot, initial encounter for closed fracture (principal); M79.671 Pain in right foot; W17.89XA Other fall from one level to another, initial encounter
CPT/HCPCS: 73610; 73630; 99283; 99284

== ENCOUNTER 2025-04-21 20:58 | Observation (INO) | payer SELFPAY ==
[2025-04-21] VITALS (12 sets, daily range): BP systolic 100–142; BP diastolic 45–92; PULSE 72–131; RESP 11–18; TEMP 36.8; O2SAT 96–100; BMI 22.7
--- OUTSIDE RECORDS SUMMARY | 2025-04-21 21:11 | XMS_ITS | Clinical Summary ---
Author Organization [facility] Address [address] [place] [address] Care Team Providers Care Special Delivery Carrier Name Role Phone Pcp, No Primary Care Provider [phone] Source Comments This information has been disclosed [...] therelease of HIV test results or diagnoses. [id number] Allergies No known active allergies Medications naloxone (NARCAN) 4 mg/actuation [place] Apply 1 spray in one nostril if [...] Date Smoking Tobacco: Every Day Cigarettes 1 9.8 Started: 2015 Tobacco Cessation:Ready to Q uit: [...] (#1) 2025 Medical Devices Implanted Type Area Real Estate Sales Associate Device Identifier Shelf Expiration Date Model / Serial / Lot Sampson External Fixation Deshawn 3 Vectran Carbon L350 Mm Od11 Mm Modular Connect Mri Safe - [id number] Implanted:Qty : 2 on 03/12/2023 by Fer Castro MD at [facility] Main External Fixation Left: Tibia KELSI OpenbravoCA 4922-8-350 / / Sampson Xtrnfx 600mm 11mm Hfmn 3 C - [id number] Implanted:Qty : 1 on 03/12/2023 by Fer Castro MD at [facility] Main External Fixation Left: Tibia KELSI OpenbravoCA 4922-8-600 / / Coupling Xtrnfx Hfmn Iii Sampson To Sampson Fabricio 5 Mm Apx Pin - [id number] Implanted:Qty : 7 on 03/12/2023 by Fer Castro MD at [facility] Main Orthopedic Left: Tibia KELSI OpenbravoCA 4922-1-010 RP / / Pin Half Deshawn 3 [place] L150 Mm L50 Mm Od5 Mm Upper Right Self Drill - [id number] Implanted:Qty : 2 on 03/12/2023 by Fer Castro MD at [facility] Main Pin Left: Tibia KELSI OpenbravoCA 5018-6-150 / / Pin Half [place] Deshawn Ii Stainless Steel L180 Mm L50 Mm Od5 Mm Cancellous Self Tap Self Drill Thread Nonsterile External Fixation System - [id number] Implanted:Qty : 2 on 03/12/2023 by Fer Castro MD at [facility] Main Pin Left: Tibia KELSI HOWMEDICA 5018-6-180 / / Wire Fixation Stuart Stainless Steel L150 Mm Od1.6 Mm [place] Sterile - [id number] Implanted:Qty : 3 on 04/02/2023 by Fer Castro MD at [facility] Main Pin Left: Tibia BLOUNT & NEPHEW CARUSO [id number] / / Wire Fixation Stuart Stainless Steel L150 Mm Od2 Mm [place] Sterile - [id number] Implanted:Qty : 1 on 04/02/2023 by Fer Castro MD at [facility] Main Pin Left: Tibia BLOUNT & NEPHEW CARUSO [id number] / / Pin Fx 40mm 2.5mm Evos Prv Strl - [id number] Implanted:Qty : 1 on 04/02/2023 by Fer Castro MD at [facility] Main Pin Left: Tibia BLOUNT & NEPHEW CARUSO [id number] / / Plate Bone Evos L201 Mm Tibia Left Proximal Medial 16 Hole Sterile 3.5 Mm Screw - [id number] Implanted:Qty : 1 on 04/02/2023 by Fer Castro MD at [facility] Main Plate Left: Tibia BLOUNT & NEPHEW CARUSO [id number] / / Screw Bone Asnis Iii Titanium L85 Mm Od6.5 Mm Fully Threaded Cannulated Self Tapping Drilling Sterile - [id number] Implanted:Qty : 1 on 03/12/2023 by Fer Castro MD at [facility] Main Screw Left: Tibia KELSI HOWMEDICA [id number] / / Screw Bone Evos L24 Mm Od3.5 Mm Cortex Self Tap Sterile - [id number] Implanted:Qty : 1 on 04/02/2023 by Fer Castro MD at [facility] Main Screw Left: Tibia BLOUNT & NEPHEW CARUSO [id number] / / Screw Bone Evos L22 Mm Od3.5 Mm Cortex Self Tap Sterile - [id number] Implanted:Qty : 2 on 04/02/2023 by Fer Castro MD at [facility] Main Screw Left: Tibia BLOUNT & NEPHEW CARUSO [id number] / / Screw Bone Evos L26 Mm Od3.5 Mm Self Tap Lock Sterile - [id number] Implanted:Qty : 1 on 04/02/2023 by Fer Castro MD at [facility] Main Screw Left: Tibia BLOUNT & NEPHEW CARUSO [id number] / / Screw Bone Evos L55 Mm Od3.5 Mm Self Tap Lock Sterile - [id number] Implanted:Qty : 1 on 04/02/2023 by Fer Castro MD at [facility] Main Screw Left: Tibia BLOUNT & NEPHEW CARUSO [id number] / / Screw Bone Evos L60 Mm Od3.5 Mm Self Tap Lock Sterile - [id number] Implanted:Qty : 1 on 04/02/2023 by Fer Castro MD at [facility] Main Screw Left: Tibia BLOUNT & NEPHEW CARUSO [id number] / / Screw Bone Evos L70 Mm Od3.5 Mm Self Tap Lock Sterile - [id number] Implanted:Qty : 1 on 04/02/2023 by Fer Castro MD at [facility] Main Screw Left: Tibia BLOUNT & NEPHEW CARUSO [id number] / / Screw Bone Evos L75 Mm Od3.5 Mm Self Tap Lock Sterile - [id number] Implanted:Qty : 2 on 04/02/2023 by Fer Castro MD at [facility] Main Screw Left: Tibia BLOUNT & NEPHEW CARUSO [id number] / / Insurance [facility] MEDICAID Advance Directives For more information, please contact: [phone] * Full Code (Latest Code Status on File) Date Activated Date Inactivated Comments 04/02/2023 3:43 PM 04/04/2023 2:52 AM * Full Code Date Activated Date Inactivated Comments 03/12/2023 7:30 AM 03/18/2023 12:41 AM Care Teams Special Delivery Carrier Relationship Specialty Start Date End Date Pcp, No No Address PCP - General 03/11/23
--- NOTE | 2025-04-21 21:14 | ECG_ITS ---
APPROVED REPORT Exam: Resting ECG HR:123 bpm ECG Measurements Heart Rate 123 AXES DE 132 P 63 QRSd 89 QRS 65 QT 289 T 45 QTc 362 Conclusion Sinus tachycardia without acute ST or T wave changes concerning for ischemia Electronically signed by : Evie Mathew, 04/22/2025 00:41:09
--- NOTE | 2025-04-21 21:21 | XR_ITS ---
PROCEDURE INFORMATION: Exam: XR Chest Exam date and time: 04/21/2025 10:15 PM Age: 44 years old Clinical indication: Shortness of breath; Additional info: Short of breath TECHNIQUE: Imaging protocol: Radiologic exam of the chest. Views: 1 view. COMPARISON: CT ANGIO CHEST PE PROTOCOL 04/21/2025 10:14 PM FINDINGS: Lungs: There are a few scattered calcified granulomas. No consolidation. No mass. Pleural spaces: Unremarkable. No pleural effusion. No pneumothorax. Heart/Mediastinum: Unremarkable. No cardiomegaly. Vasculature: Unremarkable. Bones/joints: Unremarkable. IMPRESSION: No acute findings.
--- NOTE | 2025-04-21 21:24 | CT_ITS ---
PROCEDURE INFORMATION: Exam: CTA Chest Without And With Contrast Exam date and time: 04/21/2025 10:14 PM Age: 44 years old Clinical indication: Tachypnea; Additional info: Tachy TECHNIQUE: Imaging protocol: Computed tomographic angiography of the chest without and with contrast. Exam focused on the arteries. 3D rendering (Not supervised by radiologist): MIP and/or 3D reconstructed images were created by the technologist. Radiation optimization: All CT scans at this facility use at least one of these dose optimization techniques: automated exposure control; mA and/or kV adjustment per patient size (includes targeted exams where dose is matched to clinical indication); or iterative reconstruction. Contrast material: ISOVUE; Contrast volume: 75 ml; Contrast route: INTRAVENOUS (IV); COMPARISON: CT ANGIO CHEST 03/11/2023 5:27 PM FINDINGS: Pulmonary arteries: There are a few subsegmental pulmonary artery filling defects within both lower lobes consistent with pulmonary emboli. Aorta: Unremarkable. No aortic aneurysm. No aortic dissection. Lungs: There is a stable 8 mm noncalcified right lower lobe nodule series 7, image 97. Pleural spaces: Unremarkable. No pneumothorax. No pleural effusion. Heart: The heart RV/LV ratio is 0.9. Lymph nodes: Calcified mediastinal and bilateral hilar lymph nodes are noted. Gallbladder and biliary ducts: Cholelithiasis is noted. Bones/joints: Unremarkable. No acute fracture. Soft tissues: Unremarkable. Other findings: Scattered calcified granulomata are noted. IMPRESSION: 1. Subsegmental bilateral lower lobe pulmonary emboli. No evidence for right ventricular strain. 2. Stable noncalcified 8 mm right lower lobe pulmonary nodule. 3. Scattered calcified granulomata bilaterally.
--- NOTE | 2025-04-21 21:26 | ED_ITS ---
<Statement entered by Evie Mathew DO - 04/22/25 00:26> I was consulted by the MELODIE, and we discussed the complexity of problems being addressed. I approve the treatment and management plan for this patient's care in the emergency department, thus performing a substantial portion of the medical decision making. Evie Mathew DO Discharge Plan Disposition Patient Disposition: Admitted Condition: Good Clinical Impressions Clinical Impression: DVT (deep venous thrombosis), Elevated troponin Pulmonary embolism Qualifiers: Pulmonary embolism type: unspecified Chronicity: acute Acute cor pulmonale presence: without acute cor pulmonale Qualified Code(s): I26.99 - Other pulmonary embolism without acute cor pulmonale Discharge ED Provider: Evie Mathew General Adult HPI <Christiana Vazquez (ED), MEDIATOR - Last Filed: 04/21/25 21:49> General Chief complaint: PAIN Stated complaint: Worsening Symptoms for R foot/Leg Pain and swellin Time Seen by Provider: 04/21/25 21:16 Mode of Arrival: Wheelchair Source of Information: Patient Description of Symptoms (Recalled from ER Triage Doc. by RN): Pt presents for evaluation of pain that starts in his right foot that radiates to his right knee. Pt states he injured his foot at the end of february, and continued to have swelling. Pt noted to have the padded liner for a walking boot on, but the plastic support is not present. History of Present Illness HPI narrative: 44-year-old male presents to the ED for complaint of pain that starts in his right foot radiates to his right knee. Patient states he broke his right foot at the end of February and continued to have pain and swelling. He has walking boot that he has been using. He has been trying to elevate it more the past couple of days because of the pain in his calf and knee. States that it feels better when he rubs the cath. No fevers or chills. His heart rate today upon arrival is in the 130s. Related Data Allergies Allergy/AdvReac Type Severity Reaction Status Date / Time No Known Allergies Allergy Verified 03/11/23 16:21 PFSH <Christiana Vazquez (ED), MEDIATOR - Last Filed: 04/21/25 21:49> [facility] Disclaimer: The information contained in this section may have been updated after the patient was seen, as this information can be updated by other users. Social History (Updated 03/11/23 @ 19:35 by Allison Duke DO) Smoking Status: Current every day smoker alcohol intake: never current occupational status: employed Travel in the last 8 weeks?: None Have you lived/traveled outside [place] in past 30 days?: No Contact w/someone who lives/traveled outside US past 30 days?: No Exposure to someone with infectious disease in past 14 days?: No Do you have a fever (greater than 100.4 F or 38 C)?: No Have you tested positive for COVID-19?: No Exposed to someone with COVID-19 in past 14 days?: No Do you have a sore throat?: No Do you have a cough?: No Do you have any weakness?: No Do you have any diarrhea?: No Are you experiencing any unusual bleeding?: No Do you have any muscle aches/pain?: No Do you have any abdominal pain?: No Are you experiencing loss of taste or smell?: No <Christiana Vazquez (ED), MEDIATOR - Last Filed: 04/21/25 21:49> ROS Obtained: Yes Systems reviewed as appropriate & no additional complaints except as documented Constitutional Constitutional: Reports as per HPI Physical Exam <Christiana Vazquez (ED), MEDIATOR - Last Filed: 04/21/25 21:49> General General appearance: alert and in distress Head Head exam: normocephalic Eye Eye exam: Present PERRL and EOMI ENT ENT exam: Present normal oropharynx and mucous membranes moist Neck Neck exam: Present full ROM and trachea midline Respiratory Respiratory exam: Present normal lung sounds bilaterally Cardiovascular Cardiovascular exam: Present normal rhythm, tachycardia, normal heart sounds, +S1 and +S2 Abdominal Exam Abdominal exam: Present soft and normal bowel sounds Extremities Exam Extremities exam: Present full ROM, tenderness (Right foot and calf) and normal capillary refill Neurological Exam Neurological exam: Present alert and oriented X3 Skin Skin exam: Present warm, dry and intact Medical Decision Making <Christiana Vazquez (ED), MEDIATOR - Last Filed: 04/21/25 21:49> Medical Records Screening: Per USPSTF and CDC recommendations, given the prevalence of disease in our region, it is our hospital?s policy to screen for HIV and viral Hepatitis for all patients aged 18 and over and those with ongoing risk factors. Ifeanyi Inquiry Pt receiving controlled substance: No Ifeanyi was queried for this patient: No Vital Signs: 04/21/25 21:00 04/21/25 21:22 04/21/25 21:30 Temperature 98.3 F Temperature Source Temporal Artery Scan Pulse Rate 113 H 113 H Pulse Rate [Right] 131 H Respiratory Rate 18 17 14 Blood Pressure 138/69 135/92 H Blood Pressure [Right Arm] 112/77 Blood Pressure Mean Blood Pressure Mean [Right Arm] 88 Blood Pressure Source [Right Arm] Automatic Cuff Blood Pressure Position Blood Pressure Position [Right Arm] Sitting 02 Sat by Pulse Oximetry 100 98 98 Oxygen Delivery Method Room Air 04/21/25 21:43 04/21/25 21:50 04/21/25 22:20 Temperature Temperature Source Pulse Rate 114 H 103 H 97 H Pulse Rate [Right] Respiratory Rate 13 14 13 Blood Pressure 128/83 123/77 142/75 H Blood Pressure [Right Arm] Blood Pressure Mean 85 90 Blood Pressure Mean [Right Arm] Blood Pressure Source [Right Arm] Blood Pressure Position Blood Pressure Position [Right Arm] 02 Sat by Pulse Oximetry 96 98 97 Oxygen Delivery Method 04/21/25 22:40 04/21/25 22:55 04/21/25 23:00 Temperature Temperature Source Pulse Rate 89 76 78 Pulse Rate [Right] Respiratory Rate 11 L 16 12 Blood Pressure 122/74 104/74 L 100/70 L Blood Pressure [Right Arm] Blood Pressure Mean Blood Pressure Mean [Right Arm] Blood Pressure Source [Right Arm] Blood Pressure Position Blood Pressure Position [Right Arm] 02 Sat by Pulse Oximetry 98 99 98 Oxygen Delivery Method 04/21/25 23:10 04/21/25 23:20 04/21/25 23:40 Temperature 98.3 F Temperature Source Pulse Rate 73 72 76 Pulse Rate [Right] Respiratory Rate 15 13 14 Blood Pressure 113/76 113/79 113/45 L Blood Pressure [Right Arm] Blood Pressure Mean Blood Pressure Mean [Right Arm] Blood Pressure Source [Right Arm] Blood Pressure Position Sitting Blood Pressure Position [Right Arm] 02 Sat by Pulse Oximetry 98 98 Oxygen Delivery Method Room Air Lab Data Lab Results 04/21/25 21:43: WBC 12.7 H, RBC 5.27, Hgb 15.1, Hct 45.0, MCV 85.4, MCH 28.7, MCHC 33.6, RDW 12.9, Plt Count 206, MPV 11.0 H, Neut % (Auto) 54.6, Lymph % (Auto) 34.5, [place] % (Auto) 6.4, Eos % (Auto) 3.2, Baso % (Auto) 0.7, Neut # (Auto) 6.9, Lymph # (Auto) 4.4, [place] # (Auto) 0.8, Eos # (Auto) 0.4, Baso # (Auto) 0.1, PT 12.4, INR 1.13 H, D-Dimer 1.62 H, Sodium 130 L, Potassium 4.9, C hloride 97 L, Carbon Dioxide 30, Anion Gap 7.9, BUN 14, Creatinine 0.80, Estimated Creat Clear 108, Estimated GFR 105, Est GFR ( Amer) 126, G lucose 122 H, Calcium 8.2 L, Magnesium 2.1, Total Bilirubin 1.2, AST 74 H, ALT 92 H, Alkaline Phosphatase 81, Troponin I 0.04 H, Total Protein 8.7 H, Albumin 3.9, Globulin 4.8 H, Albumin/Globulin Ratio 0.8 L, Lipase 50 04/21/25 21:43 04/21/25 21:43 Orders (Tests/Meds): ED MEDICATIONS Generic Name Dose Route Start Last Admin Trade Name Freq PRN Reason Stop Dose Admin Acetaminophen 650 mg 04/21/25 23:36 Acetaminophen 325mg Tab PO 05/21/25 23:35 Q4HP PRN Fever or Mild Pain (1-3) Hydrocodone Bitart/Acetaminophen 1 tab 04/21/25 23:36 04/22/25 00:09 Hydrocodone/Apap 5/325 Mg Tablet PO 05/21/25 23:35 1 tab Q4HP PRN Administration Mild to Moderate Pain (1-6) Hydrocodone Bitart/Acetaminophen 1 tab 04/21/25 23:36 Apap/Hydrocodone 325mg/7.5mg Tab PO 05/21/25 23:35 Q4HP PRN Severe Pain (7-10) Apixaban 10 mg 04/21/25 23:35 04/22/25 00:09 Apixaban 5mg Tablet PO 04/21/25 23:36 10 mg BID STA Administration Apixaban 5 mg 04/28/25 09:00 Apixaban 5mg Tablet PO 05/28/25 08:59 BID LUCRETIA Nicotine 21 mg 04/21/25 23:36 Nicotine 21mg/24hr Patch TD 05/21/25 23:35 DAILYP PRN Nicotine Cravings Ondansetron HCl 4 mg 04/21/25 23:36 Ondansetron 4mg/2ml Vial IV 05/21/25 23:35 Q8HP PRN Nausea Sodium Chloride 10 ml 04/21/25 23:36 Sodium Chloride 0.9% 10ml Flush Syringe IV 05/21/25 23:35 NEEDED PRN Maintain IV Site Discontinued Medications Generic Name Dose Route Start Last Admin Trade Name Freq PRN Reason Stop Dose Admin Aspirin 325 mg 04/21/25 21:25 04/21/25 21:31 Aspirin 325mg Tablet PO 04/21/25 21:26 325 mg ONCE ONE Administration Iopamidol 70 ml 04/21/25 22:12 04/21/25 22:14 Iopamidol-370 (76%);100ml Bottle IV 04/21/25 22:13 70 ml ONCE ONE Administration Orphenadrine Citrate 60 mg 04/21/25 21:25 04/21/25 21:31 Orphenadrine Citrate 60mg/2ml Vial IV 04/21/25 21:26 60 mg ONCE ONE Administration Sodium Chloride 10 ml 04/21/25 22:12 04/21/25 22:14 Sodium Chloride 0.9% 10ml Syr (Rad Only) IV 04/21/25 22:13 10 ml ONCE ONE Administration Sodium Chloride 50 ml 04/21/25 22:12 04/21/25 22:13 0.9 % Sodium Chloride 50 Ml Vial IV 04/21/25 22:13 50 ml ONCE ONE Administration ORDERS Category Date Time Status CTA Chest [CT angio chest PE protocol] Stat Cat Scan 04/21/25 21:24 Completed Chest XR -- portable [XR chest portable] Stat Exams 04/21/25 21:21 Completed POCUS Point of Care (ER Only) Stat Exams 04/21/25 21:23 Completed CBC [Complete Blood Count Auto Diff] Stat Lab 04/21/25 21:43 Completed Comprehensive Metabolic Panel Stat Lab 04/21/25 21:43 Completed D-Dimer Stat Lab 04/21/25 21:43 Completed Lipase Stat Lab 04/21/25 21:43 Completed Magnesium Stat Lab 04/21/25 21:43 Completed PT INR [Prothrombin Time INR] Stat Lab 04/21/25 21:43 Completed Trop I [Troponin I] Stat Lab 04/21/25 21:43 Completed Troponin I Q3H Lab 04/22/25 00:30 Ordered Troponin I Q3H Lab 04/22/25 03:30 Ordered Medical Decision Narrative: patient is a 44-year-old male presenting to the emergency department for evaluation of right calf pain and right foot swelling. Patient is hemodynamically stable and nontoxic-appearing upon arrival, afebrile. Differential diagnosis includes PE, DVT. Workup will be conducted with hematologic labs, specific imaging, provocative tests. Initial inventions include crystalloid bolus, analgesics. Discussed with Dr. Mathew and she is going to do a POCUS to rule out DVT. Will also do CT a chest <Evie Mathew, DO - Last Filed: 04/22/25 00:26> Vital Signs: 04/21/25 21:00 04/21/25 21:22 04/21/25 21:30 Temperature 98.3 F Temperature Source Temporal Artery Scan Pulse Rate 113 H 113 H Pulse Rate [Right] 131 H Respiratory Rate 18 17 14 Blood Pressure 138/69 135/92 H Blood Pressure [Right Arm] 112/77 Blood Pressure Mean Blood Pressure Mean [Right Arm] 88 Blood Pressure Source [Right Arm] Automatic Cuff Blood Pressure Position Blood Pressure Position [Right Arm] Sitting 02 Sat by Pulse Oximetry 100 98 98 Oxygen Delivery Method Room Air 04/21/25 21:43 04/21/25 21:50 04/21/25 22:20 Temperature Temperature Source Pulse Rate 114 H 103 H 97 H Pulse Rate [Right] Respiratory Rate 13 14 13 Blood Pressure 128/83 123/77 142/75 H Blood Pressure [Right Arm] Blood Pressure Mean 85 90 Blood Pressure Mean [Right Arm] Blood Pressure Source [Right Arm] Blood Pressure Position Blood Pressure Position [Right Arm] 02 Sat by Pulse Oximetry 96 98 97 Oxygen Delivery Method 04/21/25 22:40 04/21/25 22:55 04/21/25 23:00 Temperature Temperature Source Pulse Rate 89 76 78 Pulse Rate [Right] Respiratory Rate 11 L 16 12 Blood Pressure 122/74 104/74 L 100/70 L Blood Pressure [Right Arm] Blood Pressure Mean Blood Pressure Mean [Right Arm] Blood Pressure Source [Right Arm] Blood Pressure Position Blood Pressure Position [Right Arm] 02 Sat by Pulse Oximetry 98 99 98 Oxygen Delivery Method 04/21/25 23:10 04/21/25 23:20 04/21/25 23:40 Temperature 98.3 F Temperature Source Pulse Rate 73 72 76 Pulse Rate [Right] Respiratory Rate 15 13 14 Blood Pressure 113/76 113/79 113/45 L Blood Pressure [Right Arm] Blood Pressure Mean Blood Pressure Mean [Right Arm] Blood Pressure Source [Right Arm] Blood Pressure Position Sitting Blood Pressure Position [Right Arm] 02 Sat by Pulse Oximetry 98 98 Oxygen Delivery Method Room Air Lab Data Lab results reviewed: Yes I reviewed the patient's lab results. Lab Results 04/21/25 21:43: WBC 12.7 H, RBC 5.27, Hgb 15.1, Hct 45.0, MCV 85.4, MCH 28.7, MCHC 33.6, RDW 12.9, Plt Count 206, MPV 11.0 H, Neut % (Auto) 54.6, Lymph % (Auto) 34.5, [place] % (Auto) 6.4, Eos % (Auto) 3.2, Baso % (Auto) 0.7, Neut # (Auto) 6.9, Lymph # (Auto) 4.4, [place] # (Auto) 0.8, Eos # (Auto) 0.4, Baso # (Auto) 0.1, PT 12.4, INR 1.13 H, D-Dimer 1.62 H, Sodium 130 L, Potassium 4.9, C hloride 97 L, Carbon Dioxide 30, Anion Gap 7.9, BUN 14, Creatinine 0.80, Estimated Creat Clear 108, Estimated GFR 105, Est GFR ( Amer) 126, G lucose 122 H, Calcium 8.2 L, Magnesium 2.1, Total Bilirubin 1.2, AST 74 H, ALT 92 H, Alkaline Phosphatase 81, Troponin I 0.04 H, Total Protein 8.7 H, Albumin 3.9, Globulin 4.8 H, Albumin/Globulin Ratio 0.8 L, Lipase 50 Orders (Tests/Meds): ED MEDICATIONS Generic Name Dose Route Start Last Admin Trade Name Freq PRN Reason Stop Dose Admin Acetaminophen 650 mg 04/21/25 23:36 Acetaminophen 325mg Tab PO 05/21/25 23:35 Q4HP PRN Fever or Mild Pain (1-3) Hydrocodone Bitart/Acetaminophen 1 tab 04/21/25 23:36 04/22/25 00:09 Hydrocodone/Apap 5/325 Mg Tablet PO 05/21/25 23:35 1 tab Q4HP PRN Administration Mild to Moderate Pain (1-6) Hydrocodone Bitart/Acetaminophen 1 tab 04/21/25 23:36 Apap/Hydrocodone 325mg/7.5mg Tab PO 05/21/25 23:35 Q4HP PRN Severe Pain (7-10) Apixaban 10 mg 04/21/25 23:35 04/22/25 00:09 Apixaban 5mg Tablet PO 04/21/25 23:36 10 mg BID STA Administration Apixaban 5 mg 04/28/25 09:00 Apixaban 5mg Tablet PO 05/28/25 08:59 BID LUCRETIA Nicotine 21 mg 04/21/25 23:36 Nicotine 21mg/24hr Patch TD 05/21/25 23:35 DAILYP PRN Nicotine Cravings Ondansetron HCl 4 mg 04/21/25 23:36 Ondansetron 4mg/2ml Vial IV 05/21/25 23:35 Q8HP PRN Nausea Sodium Chloride 10 ml 04/21/25 23:36 Sodium Chloride 0.9% 10ml Flush Syringe IV 05/21/25 23:35 NEEDED PRN Maintain IV Site Discontinued Medications Generic Name Dose Route Start Last Admin Trade Name Freq PRN Reason Stop Dose Admin Aspirin 325 mg 04/21/25 21:25 04/21/25 21:31 Aspirin 325mg Tablet PO 04/21/25 21:26 325 mg ONCE ONE Administration Iopamidol 70 ml 04/21/25 22:12 04/21/25 22:14 Iopamidol-370 (76%);100ml Bottle IV 04/21/25 22:13 70 ml ONCE ONE Administration Orphenadrine Citrate 60 mg 04/21/25 21:25 04/21/25 21:31 Orphenadrine Citrate 60mg/2ml Vial IV 04/21/25 21:26 60 mg ONCE ONE Administration Sodium Chloride 10 ml 04/21/25 22:12 04/21/25 22:14 Sodium Chloride 0.9% 10ml Syr (Rad Only) IV 04/21/25 22:13 10 ml ONCE ONE Administration Sodium Chloride 50 ml 04/21/25 22:12 04/21/25 22:13 0.9 % Sodium Chloride 50 Ml Vial IV 04/21/25 22:13 50 ml ONCE ONE Administration ORDERS Category Date Time Status CTA Chest [CT angio chest PE protocol] Stat Cat Scan 04/21/25 21:24 Completed Chest XR -- portable [XR chest portable] Stat Exams 04/21/25 21:21 Completed POCUS Point of Care (ER Only) Stat Exams 04/21/25 21:23 Completed CBC [Complete Blood Count Auto Diff] Stat Lab 04/21/25 21:43 Completed Comprehensive Metabolic Panel Stat Lab 04/21/25 21:43 Completed D-Dimer Stat Lab 04/21/25 21:43 Completed Lipase Stat Lab 04/21/25 21:43 Completed Magnesium Stat Lab 04/21/25 21:43 Completed PT INR [Prothrombin Time INR] Stat Lab 04/21/25 21:43 Completed Trop I [Troponin I] Stat Lab 04/21/25 21:43 Completed Troponin I Q3H Lab 04/22/25 00:30 Ordered Troponin I Q3H Lab 04/22/25 03:30 Ordered Medical Decision Narrative: Patient is a 44-year-old male presenting to the emergency department for evaluation of right calf pain and right foot swelling. Patient is hemodynamically stable and nontoxic-appearing upon arrival, afebrile. Patient was tachycardic. Differential diagnosis includes PE, DVT, fracture pain, musculoskeletal spasm, amongst others. Workup will be conducted with hematologic labs, specific imaging, provocative tests. Initial inventions include crystalloid bolus, analgesics. Discussed with Dr. Mathew and she is going to do a POCUS to rule out DVT. Will also do CTA chest to evaluate for PE. Evie Mathew, DO I assumed care of the patient at 2200. Patient's labs were reviewed and interpreted by myself: CBC showed mild leukocytosis of 12, hemoglobin was stable. INR was 1.13. D-dimer elevated at 1.62. CMP was unremarkable. Troponin was elevated at 0.04. EKG was reviewed and interpreted by myself and showed sinus tachycardia without acute ST or T wave changes concerning for ischemia Patient CT scan showed bilateral subsegmental PEs. Bedside ultrasound had not been performed yet. However I suspect the patient has a DVT in the right lower extremity. Given that patient has an elevated troponin I feel that patient warrants admission. Patient had no right heart strain on CT scan. After discussion with the hospitalist team, they requested that patient be started on a DOAC and patient was ultimately admitted to their service for further evaluation and workup. Critical Care <Christiana Vazquez (EMELY), MEDIATOR - Last Filed: 04/21/25 21:49> Critical Care Time Critical Care Time: No
[2025-04-21] MEDS: ASPIRIN 325MG TABLET 325 MG PO (21:31)
[2025-04-21] MEDS: ORPHENADRINE CITRATE 60MG/2ML VIAL 60 MG IV (21:31)
[2025-04-21 21:54] LABS: Hematocrit 45.0 % (42.0-52.0); Hemoglobin 15.1 g/dL (14.1-18.0); Immature Granulocytes % 0.6 %; Mean Corpuscular HGB Conc 33.6 g/dL (31.8-35.4); Mean Corpuscular Hemoglobin 28.7 pg (27.0-31.2); Mean Corpuscular Volume 85.4 fl (80-94); Nucleated Red Blood Cells % 0 %; Red Blood Count 5.27 M/mm3 (4.60-6.20); Red Cell Distribution Width-SD 40.0 fL; White Blood Count 12.7 K/mm3 (4.8-10.8)
[2025-04-21 21:58] LABS: Albumin Level 3.9 g/dl (3.5-5.0); Chloride 97 mmol/L (98-107); Potassium 4.9 mmoL/L (3.5-5.1); Sodium 130 mmol/L (136-145)
[2025-04-21 22:00] LABS: Alanine Aminotransferase 92 U/L (12-78); Anion Gap 7.9 mEq/L (5-15); Aspartate Amino Transferase 74 U/L (17-59); Blood Urea Nitrogen 14 mg/dl (9-20); Carbon Dioxide 30 mmol/L (22.0-30.0); Creatinine Clearance Estimated 108 mL/min (50-200); Creatinine,Serum 0.80 mg/dl (0.66-1.25); Estimated Glomerular Filt Rate 105 ml/min (>60); GFR (African American) 126 ML/MIN (>60)
[2025-04-21 22:01] LABS: Albumin/Globulin Ratio 0.8 (1.1-1.8); Alkaline Phosphatase 81 U/L (38-126); Bilirubin,Total 1.2 mg/dl (0.2-1.3); Calcium 8.2 mg/dl (8.4-10.2); Globulin 4.8 g/dL (1.3-3.2); Glucose 122 mg/dl (74-100); Lipase 50 U/L (23-300); Magnesium 2.1 mg/dl (1.6-2.3); Total Protein,Serum 8.7 g/dl (6.3-8.2)
[2025-04-21 22:06] LABS: INR 1.13 (0.9-1.1); Prothrombin Time 12.4 seconds (10.1-12.5)
[2025-04-21] MEDS: 0.9 % SODIUM CHLORIDE 50 ML VIAL IV (22:13)
[2025-04-21 22:14] LABS: Troponin I 0.04 ng/ml (0.00-0.034)
[2025-04-21] MEDS: IOPAMIDOL-370 (76%);100ML BOTTLE 70 ML IV (22:14)
[2025-04-21] MEDS: SODIUM CHLORIDE 0.9% 10ML SYR (RAD ONLY) 10 ML IV (22:14)
[2025-04-21 22:18] LABS: Platelet Count 206 K/mm3 (142-424)
[2025-04-21 22:31] LABS: D-Dimer 1.62 ug/mL (0.0-0.5)
--- NOTE | 2025-04-21 23:25 | PC.NURSE ---
house sup contacted regarding need for bed for admission Order for bed request placed.
--- NOTE | 2025-04-21 23:39 | PC.NURSE ---
report given to Maikol HERNÁNDEZ on the second floor
--- NOTE | 2025-04-21 23:40 | P.HP_ITS ---
<Statement entered by Jim Garcia MD - 04/22/25 15:13> Rounded on patient after nurse practitioner. Personally examined and interviewed patient. Agree with exam findings and care plan as documented. History of Present Illness *Admission Date: 04/21/25 *Reason for visit:: Right foot and right calf pain *History of present illness: This is a 44-year-old male who has no significant past medical history who presents with a chief complaint of right foot pain that radiates to his calf. Due to patient's symptoms, he presented to the emergency room for evaluation. While in the emergency room, patient was noted to be tachycardic and he had a response of troponin. CTA of the chest revealed subsegmental pulmonary lower lobe emboli, no evidence of right ventricular heart strain, stable noncalcified 8 mm right lower lobe pulmonary nodule, and scattered calcified granuloma bilaterally. Due to these findings, patient has been admitted for further management. During my evaluation of the patient, patient reports that he broke his foot (right) at the end of February. Since fracturing his foot, patient has been placed in a walking boot. Patient started to experience a for symptomology with increasing pain and swelling to his right foot and calf. This prompted patient to present for evaluation. Patient reports only having a past history of smoking half a pack a day for the last 8 years. He is currently denying any chest pain, lightheadedness, dizziness, fever, chills, PND, orthopnea, shortness of breath, nausea, vomiting, or diarrhea. Chest x-ray per my independent evaluation shows no acute cardiopulmonary process. Additional pertinent vitals obtained include a white blood cell count of 12.7, INR 1.13, D-dimer 1.62, sodium 130, chloride of 97, blood glucose 122, calcium 8.2, AST of 74, ALT is 92, troponin 0.04, and total protein 8.7. [facility] Disclaimer: The information contained in this section may have been updated after the patient was seen, as this information can be updated by other users. Social History (Updated 03/11/23 @ 19:35 by Allison Duke DO) Smoking Status: Current every day smoker alcohol intake: never current occupational status: employed Travel in the last 8 weeks?: None Have you lived/traveled outside [place] in past 30 days?: No Contact w/someone who lives/traveled outside US past 30 days?: No Exposure to someone with infectious disease in past 14 days?: No Do you have a fever (greater than 100.4 F or 38 C)?: No Have you tested positive for COVID-19?: No Exposed to someone with COVID-19 in past 14 days?: No Do you have a sore throat?: No Do you have a cough?: No Do you have any weakness?: No Do you have any diarrhea?: No Are you experiencing any unusual bleeding?: No Do you have any muscle aches/pain?: No Do you have any abdominal pain?: No Are you experiencing loss of taste or smell?: No Review of Systems Review of Systems Review of systems:: pertinent systems reviewed and negative unless documented below Constitutional Constitutional: Reports system reviewed and no additional complaints, except as documented Eyes Eyes: Reports system reviewed and no additional complaints, except as documented ENT Ears, Nose, Mouth, and Throat: Reports system reviewed and no additional complaints, except as documented *Cardiovascular Cardiovascular: Reports system reviewed and no additional complaints, except as documented *Respiratory Respiratory: Reports system reviewed and no additional complaints, except as documented *Gastrointestinal Gastrointestinal: Reports system reviewed and no additional complaints, except as documented *Genitourinary Genitourinary: Reports system reviewed and no additional complaints, except as documented *Musculoskeletal Musculoskeletal: Reports limited range of motion and Reports radiating pain into limb Integumentary/Breasts Skin/Breast: Reports system reviewed and no additional complaints, except as documented *Neurologic Neurologic: Reports system reviewed and no additional complaints, except as documented Psychiatric Psychiatric: Reports system reviewed and no additional complaints, except as documented Endocrine Endocrine: Reports system reviewed and no additional complaints, except as documented Hematologic/Lymphatic Hematologic/Lymphatic: Reports system reviewed and no additional complaints, except as documented Allergic/Immunologic Allergic/Immunologic: Reports system reviewed and no additional complaints, except as documented Meds Home Medications and Allergies New Prescriptions to Start Prescriptions: Allergies Allergy/AdvReac Type Severity Reaction Status Date / Time No Known Allergies Allergy Verified 03/11/23 16:21 Exam Data for Last 24 hours Vital signs and Labs for Last 24 Hours: Temp Pulse Resp BP Pulse Ox O2 Del Method 98.3 F 72 13 113/79 98 Room Air 04/21/25 21:00 04/21/25 23:20 04/21/25 23:20 04/21/25 23:20 04/21/25 23:20 04/21/25 21:00 Laboratory Results - last 24 hr 04/21/25 21:43: WBC 12.7 H, RBC 5.27, Hgb 15.1, Hct 45.0, MCV 85.4, MCH 28.7, MCHC 33.6, RDW 12.9, Plt Count 206, MPV 11.0 H, Neut % (Auto) 54.6, Lymph % (Auto) 34.5, [place] % (Auto) 6.4, Eos % (Auto) 3.2, Baso % (Auto) 0.7, Neut # (Auto) 6.9, Lymph # (Auto) 4.4, [place] # (Auto) 0.8, Eos # (Auto) 0.4, Baso # (Auto) 0.1, PT 12.4, INR 1.13 H, D-Dimer 1.62 H, Sodium 130 L, Potassium 4.9, Chloride 97 L, Carbon Dioxide 30, Anion Gap 7.9, BUN 14, Creatinine 0.80, Estimated Creat Clear 108, Estimated GFR 105, Est GFR ( Amer) 126, Glucose 122 H, Calcium 8.2 L, Magnesium 2.1, Total Bilirubin 1.2, AST 74 H, ALT 92 H, Alkaline Phosphatase 81, Troponin I 0.04 H, Total Protein 8.7 H, Albumin 3.9, Globulin 4.8 H, Albumin/Globulin Ratio 0.8 L, Lipase 50 I & O for Last 24 hours: Intake & Output 04/18/25 04/19/25 04/20/25 04/21/25 23:59 23:59 23:59 23:59 Weight 65.771 kg Constitutional Constitutional: no acute distress, thin and cooperative *Routine HEENT Exam Head: Present normocephalic and atraumatic Eye: Present EOMI, PERRL and normal accommodation ENT: Present mucous membranes moist *Routine Neck Exam Neck: Present supple, full ROM and trachea midline *Routine Respiratory Exam Respiratory: Present CTA bilaterally, normal respiratory effort, able to speak in complete sentences and symmetric chest movement *Routine Cardiovascular Exam Cardiovascular: Present RRR, Normal S1 and Normal S2 Comments: EKG reveals a sinus tachycardia, QTc of 362, normal axis, and some minor ST segment depression in the anterior-fails to show any activity consistent with a STEMI *Routine Abdominal Exam Abdominal: Present soft and normoactive bowel sounds *Routine Rectal Exam Rectal:: deferred *Routine Genitalia Exam Genitalia:: deferred *Routine Extremities Exam Extremities: Present edema, full ROM, pulses intact and normal capillary refill Comments: Right ankle has trace edema noted Routine Back/Spine/Pelvis Exam Back/Spine: Present full ROM *Routine Skin Exam Skin: Present intact, dry, warm and normal turgor *Routine Neurological Exam Neurological: Present alert, oriented X3, CN II-XII intact and moving all extremities Routine Psychiatric Exam Psychiatric: Present normal affect, normal thought process, cooperative, good insight and good judgment H&P: Result Impressions 44-year-old male with no significant past medical history who presents after having trauma to his right lower extremity and placed in a walking boot. Started to experience increasing edema and pain from the ankle up to the calf with imaging of the chest revealing subsegmental pulmonary embolisms. More than likely, patient has some residual clots in the right lower extremity Assessment and Plan *Assessment and plan (1) Pulmonary embolism: Status: Acute Qualifiers: Acute cor pulmonale presence: without acute cor pulmonale Chronicity: acute Pulmonary embolism type: unspecified Qualified Code(s): I26.99 - Other pulmonary embolism without acute cor pulmonale Category: Medical Code(s): I26.99 - Other pulmonary embolism without acute cor pulmonale (2) Elevated troponin: Status: Acute Category: Medical Code(s): R79.89 - Other specified abnormal findings of blood chemistry (3) Closed fracture of second metatarsal bone: Status: Acute Qualifiers: Encounter type: initial encounter Laterality: right Physeal involvement: unspecified Qualified Code(s): S92.321A - Displaced fracture of second metatarsal bone, right foot, initial encounter for closed fracture Category: Medical Code(s): S92.323A - Displaced fracture of second metatarsal bone, unspecified foot, initial encounter for closed fracture (4) Leukocytosis: Status: Acute Qualifiers: Leukocytosis type: unspecified Qualified Code(s): D72.829 - Elevated white blood cell count, unspecified Category: Medical Code(s): D72.829 - Elevated white blood cell count, unspecified (5) Elevated d-dimer: Status: Acute Category: Medical Code(s): R79.89 - Other specified abnormal findings of blood chemistry (6) Elevated liver enzymes: Status: Acute Category: Medical Code(s): R74.8 - Abnormal levels of other serum enzymes Plan Assessment Pulmonary embolism Elevated D-dimer - Had long discussion with patient concerning vitamin K antagonist, X alpha inhibitors, and thrombin inhibitor. I highlighted the pros and cons of all 3 medications. After lengthy discussion, patient was amenable to start Eliquis. Will give first dose of Eliquis of 10 mg today and continue for 7 days twice daily; after the seventh day, patient will start 5 mg p.o. twice daily. Patient will need a minimum of 3-6 months of therapy - More than likely patient's thrombus is due to recent lower extremity fracture. However, he may benefit from outpatient hematology consultation - Will obtain right lower extremity venous Doppler to evaluate for residual blood clots Elevated troponin - May be due from demand ischemia. Patient presented with severe tachycardia which has improved - Will trend troponins - Current EKG fails to demonstrate any activity consistent with STEMI - Acute coronary syndrome is less likely-highly likely in the setting of demand ischemia - Will obtain 2D echo in the a.m. Leukocytosis - This may be in the setting of pulmonary embolism burden - Will trend - Patient is currently without any fever or source of infection - Will obtain procalcitonin - If patient starts having fever we will obtain blood cultures x 2 Elevated liver enzymes - This is chronic and downtrending from prior evaluation - Not clear what is causing patient's elevated liver enzymes - Patient does not seem to be decompensated - Patient is not voicing any use of significant alcohol Right nondisplaced fracture of the base of the second metatarsal - Will continue walking boot - Will need outpatient follow-up with orthopedic team 8 mm right lower lobe pulmonary nodule: This was seen on imaging/incidental finding - This is stable will recommend outpatient CT scan for follow-up in 6 months Plan: Admit patient to the [facility] unit on telemetry Saline lock Regular diet CBC/BMP daily Trend troponins every 6 hours 5 mg [place] p.o. every 4 hours for moderate pain 7.5 mg [place] every 4 hours as needed severe pain 21 mg nicotine patch daily 4 mg Zofran IV push every 8 hours for nausea vomiting/full code I will discuss this case with attending physician Dr. Garcia and I look forward to more input
--- NOTE | 2025-04-21 23:48 | PC.NURSE ---
Pt arrived to floor via wheelchair @[id number]
[2025-04-22] VITALS (7 sets, daily range): BP systolic 101–119; BP diastolic 58–74; PULSE 67–78; RESP 12–16; TEMP 36.6–36.8; O2SAT 96–100; BMI 22.6; BMI 22.4
[2025-04-22] MEDS: APIXABAN 5MG TABLET 10 MG PO ×2 (00:09→10:35)
[2025-04-22] MEDS: HYDROCODONE/APAP 5/325 MG TABLET 1 TAB PO ×2 (00:09→10:35)
[2025-04-22 01:25] LABS: Troponin I 0.02 ng/ml (0.00-0.034)
--- NOTE | 2025-04-22 03:04 | PC.NURSE ---
Pt is A&OX4 and has tolerated room air. He has remained NSR on tele. No has denied any chest pain or soa. He did complain of pain in his right leg once and was medicated per MAR. No other complaints at this time, call light within reach.
[2025-04-22 04:39] LABS: Troponin I 0.01 ng/ml (0.00-0.034)
[2025-04-22 06:53] LABS: Hematocrit 40.9 % (42.0-52.0); Immature Granulocytes % 0.3 %; Mean Corpuscular HGB Conc 32.8 g/dL (31.8-35.4); Mean Corpuscular Hemoglobin 28.5 pg (27.0-31.2); Mean Corpuscular Volume 86.8 fl (80-94); Nucleated Red Blood Cells % 0 %; Platelet Count 246 K/mm3 (142-424); Red Blood Count 4.71 M/mm3 (4.60-6.20); Red Cell Distribution Width-SD 40.4 fL; White Blood Count 10.6 K/mm3 (4.8-10.8)
[2025-04-22 07:01] LABS: Chloride 99 mmol/L (98-107); Potassium 3.7 mmoL/L (3.5-5.1); Sodium 133 mmol/L (136-145)
[2025-04-22 07:04] LABS: Anion Gap 7.7 mEq/L (5-15); Blood Urea Nitrogen 14 mg/dl (9-20); Carbon Dioxide 30 mmol/L (22.0-30.0); Creatinine Clearance Estimated 107 mL/min (50-200); Creatinine,Serum 0.80 mg/dl (0.66-1.25); Estimated Glomerular Filt Rate 105 ml/min (>60); GFR (African American) 126 ML/MIN (>60)
[2025-04-22 07:05] LABS: Calcium 7.8 mg/dl (8.4-10.2); Glucose 101 mg/dl (74-100)
[2025-04-22 07:43] LABS: Hemoglobin 13.4 g/dL (14.1-18.0)
--- NOTE | 2025-04-22 09:00 | CA_ITS ---
FINAL REPORT TECHNIQUE: Multiple transverse and longitudinal images were performed of right the femoral-popliteal deep venous system with augmentation and compression maneuvers. CLINICAL HISTORY: PE'S,RT POPLITEAL PAIN FINDINGS: Thrombosis is seen in the right popliteal, posterior tibial and peroneal veins. Remaining veins of the right lower extremity are patent. IMPRESSION: Deep venous thrombosis of the right popliteal, posterior tibial and peroneal veins. Reviewed, Interpreted and Dictated by Palomo Crespo MD Transcribed by Mary Ahn Authenticated and [facility]
[2025-04-22 11:19] LABS: Procalcitonin 0.057 ng/mL (0.0-2.0)
--- NOTE | 2025-04-22 12:40 | P.DS_ITS ---
General Admission date:: 04/21/25 Discharge date: 04/22/25 HPI HPI HPI: This is a 44-year-old male who has no significant past medical history who presents with a chief complaint of right foot pain that radiates to his calf. Due to patient's symptoms, he presented to the emergency room for evaluation. While in the emergency room, patient was noted to be tachycardic and he had a response of troponin. CTA of the chest revealed subsegmental pulmonary lower lobe emboli, no evidence of right ventricular heart strain, stable noncalcified 8 mm right lower lobe pulmonary nodule, and scattered calcified granuloma bilaterally. Due to these findings, patient has been admitted for further management. During my evaluation of the patient, patient reports that he broke his foot (right) at the end of February. Since fracturing his foot, patient has been placed in a walking boot. Patient started to experience a for symptomology with increasing pain and swelling to his right foot and calf. This prompted patient to present for evaluation. Patient reports only having a past history of smoking half a pack a day for the last 8 years. He is currently denying any chest pain, lightheadedness, dizziness, fever, chills, PND, orthopnea, shortness of breath, nausea, vomiting, or diarrhea. Chest x-ray per my independent evaluation shows no acute cardiopulmonary process. Additional pertinent vitals obtained include a white blood cell count of 12.7, INR 1.13, D-dimer 1.62, sodium 130, chloride of 97, blood glucose 122, calcium 8.2, AST of 74, ALT is 92, troponin 0.04, and total protein 8.7. Hospital Course Hospital Course Hospital Course: 44-year-old who presented with chief complaint of pain in his right lower extremity. Predominantly in the right foot and calf. On workup in the ER, found to have subsegmental PEs with no evidence of right heart strain noted on CT of chest. Initiated on anticoagulation with Eliquis. Remained stable on room air overnight. Found to have DVT in right lower extremity. Given his clinical stability, will discharge home on oral anticoagulation with plan for follow-up with PCP. Will need to complete at least 3 months of therapy. Problems addressed as follows: Pulmonary embolism Right lower extremity DVT Elevated D-dimer - Patient presented with leg pain. CTA of chest showed subsegmental PEs. No right heart strain. Able to obtain right lower extremity venous Doppler on morning of discharge showing DVT extending from popliteal distally and right lower extremity. Initiated on Eliquis. Continue 10 mg twice daily for 7 days and transition to 5 mg twice daily thereafter. Will need 3 months of anticoagulation for treatment of what appears to be a provoked DVT and PE. Recommend follow-up with PCP for further management. Patient has lost his insurance at this time however after discussion with pharmacy, provided with first month of anticoagulation for free. As he had no right heart strain on CT, no indication for keeping patient for inpatient echo. Also remained hemodynamically stable on room air with no tachycardia and normotensive Elevated troponin - May be due from demand ischemia. Patient presented with severe tachycardia which has improved. Troponin normalized. EKG did not show any ST elevations. Leukocytosis - This may be in the setting of pulmonary embolism burden and stress. Improved by morning to 10.6. No indication for antibiotics. Low concern for infection Elevated liver enzymes - This is chronic and downtrending from prior evaluation. Right nondisplaced fracture of the base of the second metatarsal - Will continue walking boot. Recommend outpatient follow-up with orthopedics. 8 mm right lower lobe pulmonary nodule: This was seen on imaging/incidental finding - This is stable will recommend outpatient CT scan for follow-up in 6-12 months Stable discharge home. Total time spent on discharge 32 minutes in counseling, documentation, chart review, and direct care with patient. Exam Data for Last 24 hours Vital signs and Labs for Last 24 Hours: Temp Pulse Resp BP Pulse Ox O2 Del Method 98.1 F 67 16 119/59 L 100 Room Air 04/22/25 07:30 04/22/25 11:52 04/22/25 11:52 04/22/25 11:52 04/22/25 07:30 04/22/25 11:00 Laboratory Results - last 24 hr 04/21/25 21:43: WBC 12.7 H, RBC 5.27, Hgb 15.1, Hct 45.0, MCV 85.4, MCH 28.7, MCHC 33.6, RDW 12.9, Plt Count 206, MPV 11.0 H, Neut % (Auto) 54.6, Lymph % (Auto) 34.5, [place] % (Auto) 6.4, Eos % (Auto) 3.2, Baso % (Auto) 0.7, Neut # (Auto) 6.9, Lymph # (Auto) 4.4, [place] # (Auto) 0.8, Eos # (Auto) 0.4, Baso # (Auto) 0.1, PT 12.4, INR 1.13 H, D-Dimer 1.62 H, Sodium 130 L, Potassium 4.9, Chloride 97 L, Carbon Dioxide 30, Anion Gap 7.9, BUN 14, Creatinine 0.80, Estimated Creat Clear 108, Estimated GFR 105, Est GFR ( Amer) 126, Glucose 122 H, Calcium 8.2 L, Magnesium 2.1, Total Bilirubin 1.2, AST 74 H, ALT 92 H, Alkaline Phosphatase 81, Troponin I 0.04 H, Total Protein 8.7 H, Albumin 3.9, Globulin 4.8 H, Albumin/Globulin Ratio 0.8 L, Lipase 50 04/22/25 00:48: Troponin I 0.02 04/22/25 03:32: Troponin I 0.01 04/22/25 06:38: WBC 10.6, RBC 4.71, Hgb 13.4 L D, Hct 40.9 L, MCV 86.8, MCH 28.5, MCHC 32.8, RDW 12.9, Plt Count 246, MPV 9.3, Neut % (Auto) 47.4, Lymph % (Auto) 38.0, [place] % (Auto) 8.0, Eos % (Auto) 5.4, Baso % (Auto) 0.9, Neut # (Auto) 5.0, Lymph # (Auto) 4.0, [place] # (Auto) 0.9, Eos # (Auto) 0.6 H, Baso # (Auto) 0.1, Sodium 133 L, Potassium 3.7 D, Chloride 99, Carbon Dioxide 30, Anion Gap 7.7, BUN 14, Creatinine 0.80, Estimated Creat Clear 107, Estimated GFR 105, Est GFR ( Amer) 126, Glucose 101 H, Calcium 7.8 L, Procalcitonin 0.057 I & O for Last 24 hours: Intake & Output 04/19/25 04/20/25 04/21/25 04/22/25 23:59 23:59 23:59 23:59 Intake Total 360 / 360 Output Total 0 / 0 Balance 360 / 360 Weight 65.771 kg 65 kg Constitutional Constitutional: no acute distress, average body habitus and cooperative *Routine HEENT Exam Head: Present normocephalic Eye: Present EOMI and PERRL ENT: Present mucous membranes moist *Routine Neck Exam Neck: Present supple; Absent lymphadenopathy *Routine Respiratory Exam Respiratory: Present CTA bilaterally, normal respiratory effort and able to speak in complete sentences; Absent accessory muscle use, rhonchi, wheezes or crackles *Routine Cardiovascular Exam Cardiovascular: Present RRR *Routine Abdominal Exam Abdominal: Present soft and normoactive bowel sounds; Absent tenderness *Routine Rectal Exam Patient deferred: visual exam *Routine Exam Patient deferred: penile exam *Routine Extremities Exam Extremities: Absent cyanosis, clubbing or edema Comments: Right lower extremity tender to palpation dorsum of right leg from distal hamstring through right calf *Routine Skin Exam Skin: Present intact and warm; Absent rash *Routine Neurological Exam Neurological: Present alert, oriented X3 and moving all extremities; Absent altered mental status Results Data Completed and Pending Labs on day of discharge: Labs from last 24 hours 04/22/25 04/22/25 04/22/25 06:38 03:32 00:48 WBC 10.6 RBC 4.71 Hgb 13.4 L D Hct 40.9 L MCV 86.8 MCH 28.5 MCHC 32.8 RDW 12.9 Plt Count 246 MPV 9.3 Neut % (Auto) 47.4 Lymph % (Auto) 38.0 [place] % (Auto) 8.0 Eos % (Auto) 5.4 Baso % (Auto) 0.9 Neut # (Auto) 5.0 Lymph # (Auto) 4.0 [place] # (Auto) 0.9 Eos # (Auto) 0.6 H Baso # (Auto) 0.1 PT INR D-Dimer Sodium 133 L Potassium 3.7 D Chloride 99 Carbon Dioxide 30 Anion Gap 7.7 BUN 14 Creatinine 0.80 Estimated Creat Clear 107 Estimated GFR 105 Est GFR ( Amer) 126 Glucose 101 H Calcium 7.8 L Magnesium Total Bilirubin AST ALT Alkaline Phosphatase Troponin I 0.01 0.02 Total Protein Albumin Globulin Albumin/Globulin Ratio Lipase Procalcitonin 0.057 04/21/25 21:43 WBC 12.7 H RBC 5.27 Hgb 15.1 Hct 45.0 MCV 85.4 MCH 28.7 MCHC 33.6 RDW 12.9 Plt Count 206 MPV 11.0 H Neut % (Auto) 54.6 Lymph % (Auto) 34.5 [place] % (Auto) 6.4 Eos % (Auto) 3.2 Baso % (Auto) 0.7 Neut # (Auto) 6.9 Lymph # (Auto) 4.4 [place] # (Auto) 0.8 Eos # (Auto) 0.4 Baso # (Auto) 0.1 PT 12.4 INR 1.13 H D-Dimer 1.62 H Sodium 130 L Potassium 4.9 Chloride 97 L Carbon Dioxide 30 Anion Gap 7.9 BUN 14 Creatinine 0.80 Estimated Creat Clear 108 Estimated GFR 105 Est GFR ( Amer) 126 Glucose 122 H Calcium 8.2 L Magnesium 2.1 Total Bilirubin 1.2 AST 74 H ALT 92 H Alkaline Phosphatase 81 Troponin I 0.04 H Total Protein 8.7 H Albumin 3.9 Globulin 4.8 H Albumin/Globulin Ratio 0.8 L Lipase 50 Procalcitonin DS: Diagnosis Discharge Diagnosis (1) Pulmonary embolism: Status: Acute Code(s): I26.99 - Other pulmonary embolism without acute cor pulmonale Qualifiers: Acute cor pulmonale presence: without acute cor pulmonale Chronicity: acute Pulmonary embolism type: unspecified Qualified Code(s): I26.99 - Other pulmonary embolism without acute cor pulmonale (2) Elevated troponin: Status: Acute Code(s): R79.89 - Other specified abnormal findings of blood chemistry (3) Closed fracture of second metatarsal bone: Status: Acute Code(s): S92.323A - Displaced fracture of second metatarsal bone, unspecified foot, initial encounter for closed fracture Qualifiers: Encounter type: initial encounter Laterality: right Physeal involvem ent: unspecified Qualified Code(s): S92.321A - Displaced fracture of second metatarsal bone, right foot, initial encounter for closed fracture (4) Leukocytosis: Status: Acute Code(s): D72.829 - Elevated white blood cell count, unspecified Qualifiers: Leukocytosis type: unspecified Qualified Code(s): D72.829 - Elevated white blood cell count, unspecified (5) Elevated d-dimer: Status: Acute Code(s): R79.89 - Other specified abnormal findings of blood chemistry (6) Elevated liver enzymes: Status: Acute Code(s): R74.8 - Abnormal levels of other serum enzymes (7) Deep vein thrombosis of right lower extremity: Status: Acute Code(s): I82.401 - Acute embolism and thrombosis of unspecified deep veins of right lower extremity Meds Home Medications and Allergies Home Medications ?Medication ?Instructions ?Recorded ?Confirmed ?Type apixaban 5 mg tablet (Eliquis) 5 mg PO BID 30 days #60 tabs 04/22/25 Rx apixaban 5 mg tablet (Eliquis) See Rx Instructions .Ro andrew 04/22/25 Rx .COMPLEX #72 tabs hydrocodone 5 mg-acetaminophen 325 1 tab PO Q4HP PRN M ild To Moderate 04/22/25 Rx mg tablet Pain (1-6) 3 days #17 tabs New Prescriptions to Start Prescriptions: [email or web address] [Eliquis] Jim Garcia apixaban [Eliquis] Jim Garcia hydrocodone-acetaminophen Jim Garcia Allergies Allergy/AdvReac Type Severity Reaction Status Date / Time No Known Allergies Allergy Verified 03/11/23 16:21 Discharge Plan Disposition Patient Disposition: Home, Self-Care Condition: Good Follow up Plan Follow up with: Provider,Referral, MD [Primary Care Provider, Medical] - Enter time for follow up Referral Note: with in 2 weeks for re-evaluation of blood clots. Prescriptions/Medication Reconciliation: New Eliquis 5 mg Tablet See Rx Instructions .ROUTE .COMPLEX Qty: 72 0RF Rx Instructions: 2 tablets (10 mg) twice a day for 6 more days. 1 tablet twice a day thereafter. hydrocodone-acetaminophen 5-325 mg Tablet 1 tab PO Q4HP PRN (Reason: Mild To Moderate Pain (1-6)) 3 Days Qty: 17 0RF Eliquis 5 mg Tablet 5 mg PO BID 30 Days Qty: 60 1RF Problem Reconciliation Problems Reviewed?: Yes Patient Discharge Instructions ACTIVITY: Continue current activity DIET: continue same diet Patient Instructions: DI for Pulmonary Embolism Print Language: Liberian Providers Primary Care Provider: Provider,Referral Admit Provider: Jim Garcia Attending Provider: Jim Garcia
--- NOTE | 2025-04-25 10:52 | SW/DCPLANNER ---
Phoned patient x2. Patient does not have a voicemail sat up. Rebeca Guillory
== END 2025-04-22 13:25 | disposition home or self-care (01) ==
LOC: ER 21:14 → 2ND 23:27
PROVIDERS: Nurse Practitioner; Nurse Practitioner Family; Admitting Provider Internal Medicine Adolescent Medicine; Emergency Provider Student in an Organized Health Care Education/Training Program; Visit Provider Internal Medicine Adolescent Medicine
DX: I26.93 Single subsegmental thrombotic pulmonary embolism without acute cor pulmonale (principal); I82.401 Acute embolism and thrombosis of unspecified deep veins of right lower extremity; S92.321A Displaced fracture of second metatarsal bone, right foot, initial encounter for closed fracture; D72.829 Elevated white blood cell count, unspecified; R74.8 Abnormal levels of other serum enzymes; R79.89 Other specified abnormal findings of blood chemistry; R91.8 Other nonspecific abnormal finding of lung field
CPT/HCPCS: 36415; 71045; 71275; 80048; 80053; 83690; 83735; 84145; 84484; 85025; 85378; 85610; 93005; 93971; 96374; 99284; G0378; J2360; Q9967